=== PATIENT | male | born 1940 | race Caucasian/White ===

== ENCOUNTER 2018-02-05 11:17 | Inpatient (IN) ==
--- NOTE | 2018-02-05 11:40 | CT ---
EXAM DATE: 02/05/2018 11:31 AM EST AGE/SEX: 77 years / Male INDICATIONS: Left side facial droop CLINICAL DATA: This is the patient's initial encounter. Patient reports that signs and symptoms have been present for 1 day and indicates a pain score of 0/10. MEDICAL/SURGICAL HISTORY: None. None. RADIATION DOSE: 33.61 CTDI (mGy) COMPARISON: [facility] [place] BRAIN [place]/O CONTRAST, 12/07/2011. . TECHNIQUE: CT of the head without contrast. Using automated exposure control and adjustment of the mA and/or kV according to patient size, radiation dose was kept as low as reasonably achievable to ob tain optimal diagnostic quality images. DICOM format image data is available electronically for revi ew and comparison. FINDINGS: Cerebrum: Encephalomalacia in the left frontal parietal region characteristic of an old infarct is a gain noted. There are no characteristic findings of acute infarct or hemorrhage. There is no evidence of mass eff ect or edema. Posterior Fossa: The cerebellum and brainstem are intact. The 4th ventricle is midline. The cerebe llopontine angle is unremarkable. Extracranial: The visualized portion of the orbits is intact. Skull: The calvaria is intact. No evidence of skull fracture. CONCLUSION: 1. No evidence of acute infarct or hemorrhage. 2. Left frontal parietal encephalomalacia consistent with old infarct. Report was called by [Dr. Richardson ]to E pod nursing staff. Electronically signed by: Marko Richardson MD 02/05/2018 11:39 AM EST
[2018-02-05 11:42] LABS: Baso # (Auto) 0.1 th/mm3 (0.0-0.2); Baso % (Auto) 0.9 % (0.0-2.0); Eos # (Auto) 0.2 th/mm3 (0.0-0.4); Eos % (Auto) 2.9 % (0.0-4.0); Hematocrit 42.2 % (39.0-51.0); Hemoglobin 14.4 gm/dL (13.0-17.0); Lymph # (Auto) 1.8 th/mm3 (1.0-4.8); Lymph % (Auto) 23.5 % (9.0-44.0); Mean Corpuscular HGB Conc 34.1 % (32.0-36.0); Mean Corpuscular Hemoglobin 31.4 pg (27.0-34.0); Mean Platelet Volume 9.3 fL (7.0-11.0); Mono # (Auto) 0.8 th/mm3 (0.0-0.9); Neut # (Auto) 4.9 th/mm3 (1.8-7.7); Neut % (Auto) 62.7 % (16.0-70.0); Platelet Count 181 th/mm3 (150-450); Red Blood Count 4.58 mil/mm3 (4.50-5.90); White Blood Count 7.8 th/mm3 (4.0-11.0)
[2018-02-05] MEDS ORDERED: Alteplase Bolus 9 MG/9 ML Syringe IV.PUSH ONE (11:43)
[2018-02-05] MEDS ORDERED: ALTEPLASE DRIP IV.SIG ONE (11:43)
[2018-02-05] MEDS: niCARdipine Inj 25 MG in Sodium Chlor 0.9% Inj 240 ML IV.CONT PRN (11:44)
[2018-02-05 11:50] LABS: Prothrombin Time 10.3 sec (9.8-11.6)
--- NOTE | 2018-02-05 11:53 | XR ---
EXAM DATE: 02/05/2018 11:49 AM EST AGE/SEX: 77 years / Male INDICATIONS: Stroke alert. CLINICAL DATA: This is the patient's initial encounter. Patient reports that signs and symptoms have been present for 1 day and indicates a pain score of Nonresponsive. MEDICAL/SURGICAL HISTORY: None. None. COMPARISON: [facility] – [place], CHEST SINGLE AP, 01/10/2015. . FINDINGS: A single AP view of the chest demonstrates the lungs to be symmetrically aerated without evidence of mass, infiltrate or effusion. The cardiomediastinal contours are unremarkable. Osseous structures a re intact. CONCLUSION: No evidence of acute cardiopulmonary process. Electronically signed by: Marko Richardson MD 02/05/2018 11:52 AM EST
--- NOTE | 2018-02-05 12:03 | CT ---
EXAM DATE: 02/05/2018 11:57 AM EST AGE/SEX: 77 years / Male INDICATIONS: Left side facial droop CLINICAL DATA: This is the patient's initial encounter. Patient reports that signs and symptoms have been present for 1 day and indicates a pain score of 0/10. MEDICAL/SURGICAL HISTORY: None. None. RADIATION DOSE: 27.35 CTDI (mGy) COMPARISON: [facility] – [place], CT HEAD W/O CONTRAST, 02/05/2018. . TECHNIQUE: Volumetric scanning was performed using a multi-row detector CT scanner during bolus infu olivia of 85ML ml Visipaque 320 (iodixanol) nonionic water-soluble contrast as a single exam dose. T he data was post processed with a variety of visualization algorithms including full volume maximum i ntensity projection, multi-planar sliding thin slab reformation, curved planar reformation, and surfa ce rendering techniques. Using automated exposure control and adjustment of the mA and/or kV accordi ng to patient size, radiation dose was kept as low as reasonably achievable to obtain optimal diagnos tic quality images. DICOM format image data is available electronically for review and comparison. FINDINGS: There is excellent visualization of the major intracranial arteries out to the second-order branch ve ssels. There is no evidence for aneurysm, vessel truncation or stenosis, and no evidence for vascula r malformation. CONCLUSION: No evidence of intraluminal filling defects or steno-occlusive disease. . Electronically signed by: Marko Richardson MD 02/05/2018 12:01 PM EST
--- NOTE | 2018-02-05 12:08 | CT ---
EXAM DATE: 02/05/2018 11:58 AM EST AGE/SEX: 77 years / Male INDICATIONS: Left side facial droop CLINICAL DATA: This is the patient's initial encounter. Patient reports that signs and symptoms have been present for 1 day and indicates a pain score of 0/10. MEDICAL/SURGICAL HISTORY: None. None. RADIATION DOSE: 27.35 CTDI (mGy) COMPARISON: No prior exams available for comparison. TECHNIQUE: Volumetric scanning was performed using a multirow detector CT scanner during bolus infus ion of 85ml ml Visipaque 320 (iodixanol) nonionic water-soluble contrast as a single exam dose. Th e data was postprocessed with a variety of visualization algorithms including full-volume maximum int ensity projection, multiplanar sliding thin-slab reformation, curved-planar reformation, and surface- rendering techniques. Using automated exposure control and adjustment of the mA and/or kV according to patient size, radiation dose was kept as low as reasonably achievable to obtain optimal diagnostic quality images. DICOM format image data is available electronically for review and comparison. FINDINGS: Aortic Arch: There is a three-vessel origin of the great vessels from the aorta. No evidence of ost ial narrowing Right Carotid: Mild eccentric ossified plaque is evident in the carotid bifurcation. There is no sig nificant stenosis. Left Carotid: Heavily calcified eccentric plaque is identified in the left carotid bifurcation exten ding into the proximal internal carotid artery. There is high-grade stenosis greater than 80%. Vertebrals: The vertebral arteries have a symmetric diameter. No stenotic lesions are seen. Percent stenosis is calculated using the diameter of the stenotic region over the diameter of the nor mal distal internal carotid artery. CONCLUSION: 1. Calcified plaque left carotid bifurcation with high-grade stenosis in the origin of the internal carotid artery (greater than 80%). 2. Mild eccentric plaque right carotid bifurcation without significant stenosis. 3. Patent symmetric vertebral arteries. Electronically signed by: Marko Richardson MD 02/05/2018 12:07 PM EST
--- NOTE | 2018-02-05 12:14 | ED ---
HPI General Chief Complaint: Stroke Alert Stated Complaint: Stroke Alert Time Seen by Provider: 02/05/18 11:19 Source: patient, family and EMS Mode of arrival: EMS Limitations: language barrier History of Present Illness HPI Narrative: 77 yo male arrives with expressive aphasia for about one hour. Symptoms started suddenly while patient was talking with daughter who subsequently called 911. 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 Timing constant. EMS reports BP approx 220/100 en route with sinus rhythm. + ASA no DOAC medication. Related Data Allergies Allergy/AdvReac Type Severity Reaction Status Date / Time hornet venom Allergy Severe unknown Verified 02/05/18 11:44 atorvastatin Allergy Unknown unknown Verified 02/05/18 11:44 Review of Systems ROS: all other systems reviewed are negative [facility] Medical History Medical History CVA (cerebral vascular accident) (Acute) HTN (hypertension) (Acute) Hypercholesterolemia (Acute) Social History Social History Substance History: No History of Abuse Smoking Status: Never smoker How Often Do You Have a Drink Containing Alcohol: Never Recent Travel in [facility] within the Last 8 Weeks: No Recent Out of Country Travel within the Last 8 Weeks: No Immunization History Tetanus Immunization: <5 Years Exam Narrative Exam Narrative: GENERAL: 77 yo M, WNWD, pleasant mild distress SKIN: Focused skin assessment warm/dry. HEAD: Atraumatic. Normocephalic. EYES: Pupils equal and round. No scleral icterus. No injection or drainage. ENT: No nasal bleeding or discharge. Mucous membranes pink and moist. NECK: Trachea midline. No JVD. CARDIOVASCULAR: Regular rate and rhythm. No murmur appreciated. RESPIRATORY: No accessory muscle use. Clear to auscultation. Breath sounds equal bilaterally. GASTROINTESTINAL: Abdomen soft, non-tender, nondistended. Hepatic and splenic margins not palpable. MUSCULOSKELETAL: No obvious deformities. No clubbing. No cyanosis. No edema. NEUROLOGICAL: Awake and alert. Expressive aphasia. 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 LE motor function normal bilaterally. PSYCHIATRIC: Appropriate mood and affect; insight and judgment normal. Course Initial Documented Vital Signs Temperature 98.0 F 02/05/18 11:38 Pulse Rate 64 02/05/18 11:38 Respiratory Rate 21 02/05/18 11:38 Blood Pressure 221/100 H 02/05/18 11:38 Pulse Oximetry 97 02/05/18 11:38 Last Documented Vital Signs Temperature 98.0 F 02/05/18 11:38 Pulse Rate 64 02/05/18 11:38 Respiratory Rate 21 02/05/18 11:38 Blood Pressure 221/100 H 02/05/18 11:38 Pulse Oximetry 97 02/05/18 11:38 Critical Care Time Critical Care Time: Yes Total Critical Care Time: 45 Attestation: Aggregate critical care time was 45 minutes. Time to perform other separately billable procedures was not included in the critical care time. My time did not include minutes spent treating any other patients simultaneously or on activities that did not directly contribute to the patient's treatment. The services I provided to this patient were to treat and/or prevent clinically significant deterioration that could result in: Permanent disability I provided critical care services requiring my management, as noted below: Chart data review, documentation time, medication orders and management, vital sign assessments/reviewing monitor data, ordering and reviewing lab tests, ordering and interpreting/reviewing x-rays and diagnostic studies, care of the patient and discussion of the patient with the admitting physicians. Medical Decision Making MDM Narrative Medical decision making narrative: TPA given in ED after BP control with Cardene gtt. d/w patient and daughter at bedside regarding risks vs benefits for TPA administration. daughter, POA, and patient verbalized understanding and requested we proceed with TPA. d/w Dr Maret, please review his note. d/w Dr Loja for [facility] service. High grade carotid stenosis noted. Medical Screen Exam Complete: Yes Emergency Medical Condition: Yes Lab Data Lab results reviewed: Yes I reviewed the patient's lab results. Result diagrams: 02/05/18 11:20 Lab Results 02/05/18 02/05/18 02/05/18 Range/Units 11:20 11:20 11:20 WBC 7.8 (4.0-11.0) th/mm3 RBC 4.58 (4.50-5.90) mil/mm3 Hgb 14.4 (13.0-17.0) gm/dL POC Hgb (Calc) (13.0-17.0) g/dL Hct 42.2 (39.0-51.0) % POC Hct (39-51.0) % MCV 92.0 (80.0-100.0) fL MCH 31.4 (27.0-34.0) pg MCHC 34.1 (32.0-36.0) % RDW 14.0 (11.6-17.2) % Plt Count 181 (150-450) th/mm3 MPV 9.3 (7.0-11.0) fL Neut % (Auto) 62.7 (16.0-70.0) % Lymph % (Auto) 23.5 (9.0-44.0) % Dickenson % (Auto) 10.0 H (0.0-8.0) % Eos % (Auto) 2.9 (0.0-4.0) % Baso % (Auto) 0.9 (0.0-2.0) % Neut # (Auto) 4.9 (1.8-7.7) th/mm3 Lymph # (Auto) 1.8 (1.0-4.8) th/mm3 Dickenson # (Auto) 0.8 (0.0-0.9) th/mm3 Eos # (Auto) 0.2 (0.0-0.4) th/mm3 Baso # (Auto) 0.1 (0.0-0.2) th/mm3 WBC Differential . Differential Comment Auto diff final PT 10.3 (9.8-11.6) sec INR 1.0 Ratio APTT 25.0 (23.4-31.7) sec Fibrinogen 323 (227-377) mg/dL POC Sodium (137-144) mmol/L POC Potassium (3.6-5.0) mmol/L POC Chloride (102-111) mmol/L POC BUN (5-21) mg/dL POC Creatinine (0.6-1.3) mg/dL POC Glucose (68-110) mg/dL Blood Type O Positive Antibody Screen Negative 02/05/18 Range/Units 11:20 WBC (4.0-11.0) th/mm3 RBC (4.50-5.90) mil/mm3 Hgb (13.0-17.0) gm/dL POC Hgb (Calc) 14.3 (13.0-17.0) g/dL Hct (39.0-51.0) % POC Hct 42.0 (39-51.0) % MCV (80.0-100.0) fL MCH (27.0-34.0) pg MCHC (32.0-36.0) % RDW (11.6-17.2) % Plt Count (150-450) th/mm3 MPV (7.0-11.0) fL Neut % (Auto) (16.0-70.0) % Lymph % (Auto) (9.0-44.0) % Dickenson % (Auto) (0.0-8.0) % Eos % (Auto) (0.0-4.0) % Baso % (Auto) (0.0-2.0) % Neut # (Auto) (1.8-7.7) th/mm3 Lymph # (Auto) (1.0-4.8) th/mm3 Dickenson # (Auto) (0.0-0.9) th/mm3 Eos # (Auto) (0.0-0.4) th/mm3 Baso # (Auto) (0.0-0.2) th/mm3 WBC Differential Differential Comment PT (9.8-11.6) sec INR Ratio APTT (23.4-31.7) sec Fibrinogen (227-377) mg/dL POC Sodium 142 (137-144) mmol/L POC Potassium 3.8 (3.6-5.0) mmol/L POC Chloride 102 (102-111) mmol/L POC BUN 13 (5-21) mg/dL POC Creatinine 0.9 (0.6-1.3) mg/dL POC Glucose 102 (68-110) mg/dL Blood Type Antibody Screen Imaging Data Attestation: I personally reviewed and interpreted this imaging study as follows : Radiologist's impression: Chest X-Ray 02/05/18 11:19 CONCLUSION: No evidence of acute cardiopulmonary process. Head CT 02/05/18 11:19 CONCLUSION: 1. No evidence of acute infarct or hemorrhage. 2. Left frontal parietal encephalomalacia consistent with old infarct. Report was called by [Dr. Richardson ]to E pod nursing staff. Head CTA 02/05/18 11:19 CONCLUSION: No evidence of intraluminal filling defects or steno-occlusive disease. . Neck CTA 02/05/18 11:19 CONCLUSION: 1. Calcified plaque left carotid bifurcation with high-grade stenosis in the origin of the internal carotid artery (greater than 80%). 2. Mild eccentric plaque right carotid bifurcation without significant stenosis. 3. Patent symmetric vertebral arteries. Discharge Plan Discharge Disposition Patient Disposition: ED Admit(ED Internal Use Only) Discharge Order Discharge Orders: ED Use Only Admit Order (Routine); Ordered 02/05/18 Ordered By: José Luis Sales Physicians Team ED Provider: José Luis Sales Primary Care Provider: UNKNOWN, Attending Provider: Shankar Loja Status ED Status: Admitted Patient
--- NOTE | 2018-02-05 12:30 | MB ---
cc: Merrill Marte MD, PhD DATE: 02/05/2018 REASON FOR CONSULTATION: Stroke alert. HISTORY OF PRESENT ILLNESS: Mr. Aquino is a 77-year-old man who has a history of stroke in the past, who about an hour before arrival, which was 10 a.m., developed acute onset of difficulty getting words out. He was able to talk in his [place] tongue of Mongolian but could not express anything in Hungarian. He had a left facial droop as well. No focal weakness. A stroke alert was called. PAST MEDICAL HISTORY: He has a history of hypertension. 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 History of prior stroke with expressive aphasia, which completely cleared up. History of right hip fracture. PREVIOUS MEDICATION: He takes aspirin. He is not on any anticoagulants. He takes medicine for his blood pressure. NEUROLOGIC EXAMINATION: VITAL SIGNS: He was initially hypertensive when he presented to 221/100. He is on Cardene now with blood pressure of 180/80. Pulse 64 and regular. He is in sinus rhythm. Temperature 98 degrees. HIGHER CORTICAL FUNCTION: He is alert. His speech is dysarthric. He is able to get words out, but they are definitely dysarthric. He can follow commands. Cranial nerves: There is a left facial droop. MOTOR: Motor exam is 5/5 in all groups in both upper and lower extremities. There is no drift. Fine motor skills normal. Reflexes are symmetric. IMAGING STUDIES: CT of the brain, no acute change. There is left frontoparietal encephalomalacia consistent with an old stroke. CTA of the brain and neck currently pending. LABORATORY DATA: White count is 7800, hemoglobin 14.4, hematocrit 42%, platelet count 181,000. The PT is 10.3, INR 1, aPTT 25. Sodium is 142, potassium 3.8, chloride 102, BUN is 13, creatinine 0.9, glucose 102. EKG: Sinus rhythm. IMPRESSION: Acute stroke with initially aphasia, left facial droop. The patient does meet criteria for IV tPA. Therefore, this was discussed with his family, including risks and benefits, including a 6% risk of hemorrhage, and it was elected to proceed with IV tPA. We will also followup with the CT angiogram results. We will avoid any antiplatelets or anticoagulants for 24 hours. Will obtain a 24-hour post-tPA CT of the brain. Also obtain an MRI of the brain, echocardiogram for further evaluation, as well as a lipid panel. ADDENDUM: Since my original dictation, CT angiogram has been reviewed. The CTA of the neck shows calcified plaque at the left carotid bifurcation with high-grade stenosis approximately 80%. There is mild plaque on the right with no significant stenosis. Vertebral arteries are patent. CTA of the head was also reviewed with no evidence of any large vessel occlusion or stenosis. The patient is demonstrating considerable improvement in his speech since initiation of TPA. I reevaluated his cranial nerve examination. There is no clear facial droop on the left. The upper extremities are normal in strength. We will review of further examination with the MRI of the brain. Since this was an expressive aphasia. It is possible that this may have been a left hemispheric event which would implicate the left carotid stenosis potentially in this stroke. His CT of the brain does reveal evidence of an old stroke in the left hemisphere. For this reason, we will also ask for a vascular surgery consultation regarding the left carotid stenosis. Merrill Marte MD, PhD SHIRLEY/lester , 12:08 PM , 12:16 PM
[2018-02-05 12:55] LABS: Creatine Kinase 51 U/L (39-308)
[2018-02-05] MEDS ORDERED: Gadobutrol PF 7.5 MMOL/7.5 ML Vial (for RAD) IV.SIG ONE (13:25)
[2018-02-05 13:44] LABS: Bilirubin,Urine Negative (Negative); Clarity,Urine Clear (Clear); Glucose,Urine (UA) Negative (Negative); Leukocyte Esterase,Urine Negative (Negative); Mucus,Urine Few /lpf (Occasional); Nitrite,Urine Negative (Negative); Specific Gravity,Urine 1.021 (1.002-1.035); Squamous Epithelial Cell,Urine <1 /hpf (0-5)
[2018-02-05 13:45] LABS: Amphetamine Screen,Urine Neg (Neg); Barbiturate Screen,Urine Neg (Neg); Cannabinoid Screen,Urine Neg (Neg); Cocaine Screen,Urine Neg (Neg); Color,Urine Straw (Yellw/Straw)
[2018-02-05] MEDS ORDERED: Sod Chloride 0.9% Inj 1,000 ML IV.CONT SCH (13:45)
[2018-02-05 13:49] LABS: Opiate Screen,Urine Neg (Neg)
--- NOTE | 2018-02-05 13:59 | MB ---
cc: Merrill Marte MD, PhD DATE: 02/05/2018 ADDENDUM: Since my original dictation, CT angiogram has been reviewed. The CTA of the neck shows calcified plaque at the left carotid bifurcation with high-grade stenosis approximately 80%. There is mild plaque on the right with no significant stenosis. Vertebral arteries are patent. CTA of the head was also reviewed with no evidence of any large vessel occlusion or stenosis. The patient is demonstrating considerable improvement in his speech since initiation of tPA. I reevaluated his cranial nerve examination. There is no clear facial droop on the left. The upper extremities are normal in strength. We will review of further examination with the MRI of the brain. Since this was an expressive aphasia. It is possible that this may have been a left hemispheric event which would implicate the left carotid stenosis potentially in this stroke. His CT of the brain does reveal evidence of an old stroke in the left hemisphere. For this reason, we will also ask for a vascular surgery consultation regarding the left carotid stenosis. Merrill Marte MD, PhD SHIRLEY/lester , 01:20 PM , 01:25 PM
[2018-02-05 14:00] LABS: Chol/HDL Ratio 2.16 Ratio
--- NOTE | 2018-02-05 14:06 | MR ---
EXAM DATE: 02/05/2018 1:39 PM EST AGE/SEX: 77 years / Male INDICATIONS: Stroke alert. Post TPA. CLINICAL DATA: This is the patient's initial encounter. Patient reports that signs and symptoms have been present for 1 day and indicates a pain score of 0/10. MEDICAL/SURGICAL HISTORY: Cerebrovascular disease. Hypertension. Cholecystectomy. Right hip re placement. COMPARISON: [facility] – [place], [place] HEAD W/O CONTRAST, 02/05/2018. . TECHNIQUE: Multiplanar, multisequence examination of the brain was performed without and with 7cc ml Gadavist (gadobutrol) contrast as a single exam dose. FINDINGS: Cerebrum: There is focal encephalomalacia in the left frontoparietal region. There is a linear area of acute infarction seen in this region. The lateral ventricles are mildly distended. There is wideni ng of the cortical sulci. No evidence of midline shift, mass lesion, hemorrhage. No extraaxial flu id collections are seen. The pituitary gland and suprasellar cistern are normal in configuration. White Matter: There is increased signal seen throughout the cerebral white matter being worse on the left especially around the encephalomalacia. Posterior Fossa: The cerebellum and brainstem are intact. The 4th ventricle is midline. The cerebel lopontine angle is unremarkable. The cerebellar tonsils are normal in position. Diffusion Imaging: Again noted is the linear increased signal in the cortical gyrus seen in the left frontoparietal region. Extracranial: The visualized portions of the orbits and paranasal sinuses are unremarkable. Post Contrast: No abnormal areas of parenchymal or dural enhancement. No evidence of blood-brain ba rrier breakdown. CONCLUSION: 1. Linear area of acute infarction at a cortical gyrus of the left frontoparietal region. 2. Adjacent encephalomalacia in the left frontoparietal region. 3. Suspected small vessel ischemic change in the white matter. 4. Age-related atrophy. Electronically signed by: Freedom Quiroga MD 02/05/2018 2:04 PM EST
[2018-02-05] MEDS ORDERED: Labetalol HCl Inj 100 MG/20 ML Vial IV.PUSH PRN (15:47)
[2018-02-05] MEDS ORDERED: Dextrose 50% in Water 50 ML Vial IV.PUSH PRN (15:47)
[2018-02-05] MEDS ORDERED: Acetaminophen Inj 650 MG/65 ML VIAL IV.SIG PRN (15:57)
--- NOTE | 2018-02-05 16:08 | P.HPCC ---
History of Present Illness Service: Critical care medicine Primary Care Physician: UNKNOWN Chief Complaint: Right facial droop/dysarthria History of Present Illness: This is a 77-year-old male. Date of admission 02/05/2018. 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 Patient presents to [facility] with acute onset of dysarthria, right facial droop at 10 AM this morning. Stroke alert was called when patient arrived. CT of the brain revealed old left frontoparietal encephalomalacia. CT Kathrin of the brain revealed no acute findings. CT angiogram of the neck revealed 80% stenosis left internal carotid at the bulb. MRI of the brain revealed acute left frontal parietal CVA at the gyrus. Patient was able to speak Persian but very little Nauruan during this event. There is no significant noncranial nerve motor or sensory deficit. Patient was advised by Dr. Marte. Patient received 6.4 mg of alteplase followed by 57 mg. At first patient had improving left facial droop and dysarthria. Vascular surgeon been consulted for the left internal carotid stenosis. - Diagnosis (1) CVA (cerebral vascular accident) (2) Hypertension (3) Hyperlipidemia (4) Elevated HDL (5) Left carotid stenosis Inpatient Certification: I certify that the inpatient services were ordered in accordance with Medicare regulations governing the order. This includes certification that hospital inpatient services are reasonable and necessary and in the case of services not specified as inpatient-only under 42 CFR 419.22(n), that they are appropriately provided as inpatient services in accordance to with the 2-midnight benchmark under 43 CFR 412.3(e) Estimated Total Length of Stay (Days): 5 Plans for Post Hospital Care: Home Review of Systems Constitutional: Denies anorexia, Denies body ache(s), Denies chills Eyes: Denies blind spots, Denies blurry vision Ears, Nose, Mouth, and Throat: Denies abnormal hearing, Denies bad breath, Denies poor balance Cardiovascular: Denies chest pain, Denies chest pain at rest, Denies shortness of breath, Denies shortness of breath with activity Respiratory: Denies chest congestion, Denies cough Gastrointestinal: Denies abdominal pain, Denies nausea, Denies vomiting Genitourinary: Denies urinary hesitancy, Denies urinary incontinence Musculoskeletal: Denies abnormal walking, Denies back pain, Denies body aches, Denies stiffness Skin/Breast: Denies bleeding lesions, Denies wounds Neurologic: Reports abnormal speech, Reports confusion, Reports other (Left facial droop and dysarthria), Denies abnormal hearing, Denies abnormal movements , Denies abnormal walking, Denies frequent falls, Denies headache(s), Denies lack of coordination, Denies localized weakness, Denies sensory deficit, Denies tremor(s), Denies unsteadiness, Denies weakness Psychiatric: Reports confusion, Denies anxiety, Denies depression Endocrine: Denies cold intolerance, Denies excessive sweating Hematologic/Lymphatic: Denies easy bleeding PMFSH - History History 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, 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 - Medical History Medical History: Medical History (Last Updated 02/05/18 @ 11:41 by Claudia Argueta RN) CVA (cerebral vascular accident) HTN (hypertension) Hypercholesterolemia - Surgical History Surgical History: Surgical History (Last Updated 02/05/18 @ 12:36 by Claudia Argueta RN) History of cholecystectomy History of hip replacement Hx of appendectomy - Family History Family History: Family History (Last Updated 02/05/18 @ 16:04 by Larry Ross MD) Other History of myocardial infarction Maternal family history of dementia - Social History I have reviewed the patient's Social History: Yes - Tobacco History Second Hand Smoke Exposure: No Tobacco Use In Past 30 Days: No Smoking Status: Never smoker - Alcohol History How Often Do You Have a Drink Containing Alcohol: Never - Substance Use History Substance History: No History of Abuse - Travel History Recent Travel in the [place] Within the Last 8 Weeks: No Recent Travel Out of the Country Within the Last 8 Weeks: No - Immunization History Tetanus Immunization: <5 Years Medications and Allergies Active Medications: Active Medications Albuterol (Albuterol Neb (Prn)) 2.5 mg NEB Q2HR NEB PRN PRN Reason: DYSPNEA Albuterol (Duoneb Neb (Prn)) 1 ampul NEB Q4HR NEB ANJEL Chlorhexidine Gluconate (Chlorhexidine 2% Cloth) 3 pack TOPICAL DAILY@0400 ANJEL Stop: 02/11/18 03:59 Chlorhexidine Gluconate (Chlorhexidine 2% Cloth) 3 pack TOPICAL DAILY@0400 PRN PRN Reason: Extra cloth needed Stop: 02/11/18 03:59 Dextrose (D50w Vial) 50 ml IV.PUSH UNSCH PRN PRN Reason: PER HYPOGLYCEMIA PROTOCOL Famotidine (Pepcid Pf Inj) 20 mg IV.PUSH Q12HR ANJEL Glucagon (Glucagon Inj) 1 mg OTHER UNSCH PRN PRN Reason: for Hypoglycemia Protocol Nicardipine HCl 25 mg/ Sodium (Chloride) 250 mls @ 50 mls/hr IV.CONT TITRATE PRN; Protocol PRN Reason: Per Protocol Last Titration: 02/05/18 13:56 Dose: 2.5 mg/hr, 25 mls/hr Sodium Chloride (Ns Inj) 1,000 mls @ 84 mls/hr IV.CONT .[id number] ANJEL Last Admin: 02/05/18 13:57 Dose: 84 mls/hr Acetaminophen (Ofirmev Inj) 650 mg in 65 mls @ 400 mls/hr IV.SIG Q6H PRN PRN Reason: PAIN SCALE 1 TO 10 Insulin Aspart (Novolog Insulin Correctional Sugar Inj) 0 unit SQ Q6HR ANJEL; Protocol Labetalol HCl (Trandate Inj) 10 mg IV.PUSH Q2H PRN PRN Reason: For SBP > 180 or DBP > 105 Lactulose (Lactulose Liq) 30 ml PO DAILY PRN PRN Reason: SEVERE CONSITIPATION Allergies Allergy/AdvReac Type Severity Reaction Status Date / Time hornet venom Allergy Severe unknown Verified 02/05/18 11:44 atorvastatin Allergy Unknown unknown Verified 02/05/18 11:44 Home Medications Medication Instructions Recorded Confirmed Type Unable to Obtain Home Meds 02/05/18 02/05/18 History Results - Labs CBC & Chem 7: 02/05/18 11:20 Labs: Short CBC 02/05/18 Range/Units 11:20 WBC 7.8 (4.0-11.0) th/mm3 Hgb 14.4 (13.0-17.0) gm/dL Hct 42.2 (39.0-51.0) % Plt Count 181 (150-450) th/mm3 Cardiac Enzymes 02/05/18 Range/Units 11:20 Total Creatine Kinase 51 (39-308) U/L Troponin I Less than 0.02 L (0.02-0.05) ng/mL Urine 02/05/18 Range/Units 12:26 Urine Color Straw (Yellw/Straw) Urine Clarity Clear (Clear) Urine pH 7.0 (5.0-8.5) Ur Specific [place] 1.021 (1.002-1.035) Urine Protein Negative (Neg-Trace) mg/dL Urine Glucose (UA) Negative (Negative) mg/dL - Imaging Impressions Head MRI 02/05/18 00:00 CONCLUSION: 1. Linear area of acute infarction at a cortical gyrus of the left frontoparietal region. 2. Adjacent encephalomalacia in the left frontoparietal region. 3. Suspected small vessel ischemic change in the white matter. 4. Age-related atrophy. Chest X-Ray 02/05/18 11:19 CONCLUSION: No evidence of acute cardiopulmonary process. Head CT 02/05/18 11:19 CONCLUSION: 1. No evidence of acute infarct or hemorrhage. 2. Left frontal parietal encephalomalacia consistent with old infarct. Report was called by [Dr. Richardson ]to E pod nursing staff. Head CTA 02/05/18 11:19 CONCLUSION: No evidence of intraluminal filling defects or steno-occlusive disease. . Neck CTA 02/05/18 11:19 CONCLUSION: 1. Calcified plaque left carotid bifurcation with high-grade stenosis in the origin of the internal carotid artery (greater than 80%). 2. Mild eccentric plaque right carotid bifurcation without significant stenosis. 3. Patent symmetric vertebral arteries. Exam Vital signs: Vital Signs 02/05/18 11:38 Temperature 98.0 F Pulse Rate 64 Respiratory Rate 21 Blood Pressure 221/100 H Pulse Oximetry 97 Intake & Output 02/04/18 02/05/18 02/05/18 18:59 06:59 18:59 Intake Total 57 / 57 Balance 57 / 57 Weight 70.6 kg Intake: IV 57 / 57 Activase Drip 57 MG In Bag/ 57 / 57 Syringe 1 EACH @ 57 mls/hr IV. SIG ONCE ONE Rx#:[id number] - Constitutional no acute distress - Routine HEENT Exam Head: Present: normocephalic, atraumatic Eye: Present: EOMI, PERRL. Absent: exophthalmos, proptosis ENT: Present: mucous membranes moist - Routine Neck Exam Present: supple, full ROM. Absent: JVD, carotid bruit - Routine Chest/Breast/Axilla Exam Chest wall: Absent: tenderness Breast: Absent: tenderness Axillae: Absent: lymphadenopathy - Routine Respiratory Exam Present: CTA bilaterally. Absent: accessory muscle use - Routine Cardiovascular Exam Present: RRR, S1, S2. Absent: murmur - Routine Abdominal Exam Present: soft, normoactive bowel sounds - Routine Extremities Exam Absent: cyanosis, clubbing, edema, calf tenderness - Routine Skin Exam Present: intact - Routine Neurological Exam Present: alert, oriented X3. Absent: CN II-XII intact (Right facial droop), normal speech (Dysarthria) Septic Shock Reassessment Septic shock perfusion: reassessment completed Caprini VTE Risk Assessment Caprini VTE Risk Assessment: No/Low Risk (score <= 1) Caprini Risk Assessment Model: Point Value = 1 Point Value = 2 Point Value = 3 Point Value = 5 Age 41-60 Minor surgery BMI > 25 kg/m2 Swollen legs Varicose veins or History of unexplained or recurrent spontaneous Oral contraceptives or hormone replacement Sepsis (< 1 month) Serious lung disease, including pneumonia (< 1 month) Abnormal pulmonary function Acute myocardial infarction Congestive heart failure (< 1 month) History of inflammatory bowel disease Medical patient at bed rest Age 61-74 Arthroscopic surgery Major open surgery (> 45 min) Laparoscopic surgery (> 45 min) Malignancy Confined to bed (> 72 hours) Immobilizing plaster cast Central venous access Age >= 75 History of VTE Family history of VTE Factor V Leiden Prothrombin [id number] Lupus anticoagulant Anticardiolipin antibodies Elevated serum homocysteine Heparin-induced thrombocytopenia Other congenital or acquired thrombophilia Stroke (< 1 month) Elective arthroplasty Hip, pelvis, or leg fracture Acute spinal cord injury (< 1 month) Prophylaxis Regimen: Total Risk Factor Score Risk Level Prophylaxis Regimen 0-1 Low Early ambulation 2 Moderate Order ONE of the following: *Sequential Compression Device (SCD) *Heparin 5000 units SQ BID 3-4 Higher Order ONE of the following medications: *Heparin 5000 units SQ TID *Enoxaparin/Lovenox 40 mg SQ daily (WT < 150 kg, CrCl > 30 mL/min) *Enoxaparin/Lovenox 30 mg SQ daily (WT < 150 kg, CrCl > 10-29 mL/min) *Enoxaparin/Lovenox 30 mg SQ BID (WT < 150 kg, CrCl > 30 mL/min) AND/OR *Sequential Compression Device (SCD) 5 or more Highest Order ONE of the following medications: *Heparin 5000 units SQ TID (Preferred with Epidurals) *Enoxaparin/Lovenox 40 mg SQ daily (WT < 150 kg, CrCl > 30 mL/min) *Enoxaparin/Lovenox 30 mg SQ daily (WT < 150 kg, CrCl > 10-29 mL/min) *Enoxaparin/Lovenox 30 mg SQ BID (WT < 150 kg, CrCl > 30 mL/min) AND *Sequential Compression Device (SCD) Assessment and Plan - Problem List (1) CVA (cerebral vascular accident) Code(s): I63.9 - Cerebral infarction, unspecified Status: Acute (2) Hypertension Code(s): I10 - Essential (primary) hypertension Status: Chronic (3) Hyperlipidemia Code(s): E78.5 - Hyperlipidemia, unspecified Status: Chronic (4) Elevated HDL Code(s): E78.89 - Other lipoprotein metabolism disorders Status: Acute (5) Left carotid stenosis Code(s): I65.22 - Occlusion and stenosis of left carotid artery Status: Acute - Assessment and Plan Plan: Neuro/Psych: Acute left frontal parietal CVA with dysarthria and right-sided facial droop history of CVA with expressive aphasia 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 CT angiogram of the neck revealed left carotid stenosis 80% -vascular surgery consulted by neurology CT angiogram of brain revealed no acute findings MRI brain revealed acute CVA at the cortical gyri of the left frontoparietal region Received alteplase 6.4 mg x1 followed by 57 mg over 1 hour Neurology/Dr. Marte following Repeat brain CT 24 hours post infusion We will keep systolic blood pressure less than 180, diastolic pressure is 105 with labetalol and nicardipine drip 2D echocardiogram ordered. PT/OT/ST evaluate and treat Head of bed flat times 12 hours NIH score Neurocheck CV: Essential hypertension Hyperlipidemia -with elevated HDL Left carotid stenosis Currently on as needed labetalol and nicardipine drip to keep systolic blood pressure 70, diastolic blood pressure 75 Follow-up on 2D echocardiogram Continue home medications HDL is elevated. LDL is within normal limits. Vascular surgery is consulted for the left carotid stenosis Resp: Nasal cannula to maintain saturations greater than equal to 92% Incentive spirometry while awake Albuterol/ipratropium aerosols every 4 hours with albuterol aerosols every 2 hours as needed dyspnea GI: N.p.o. status Famotidine for GI prophylaxis : Condom catheter if needed Endo: Check hemoglobin A1c and TSH Sliding scale insulin Accu-Cheks to maintain euglycemia Renal: Creatinine currently within normal limits Monitor urine output Accurate I's and O's Heme: CBC currently within normal limits No indication for transfusion of blood products at this time ID: Monitor for signs and symptomatology infection FEN: Currently normal saline at 70 cc an hour Replace electro lites as clinically indicated MSK: PT/OT evaluate and treat Access -Utilize peripheral IV. Central line if indicated Prophylaxis -GI -famotidine -DVT -SCD/pharmacological prophylaxis contraindicated 24 hours post alteplase Level 3 admission Patient stable from critical care medicine standpoint. Assign care to hospitalist in a.m. 02/06. (1) CVA (cerebral vascular accident) Qualifiers: CVA mechanism: unspecified Qualified Code(s): I63.9 - Cerebral infarction, unspecified (2) Hypertension Qualifiers: Hypertension type: unspecified Qualified Code(s): I10 - Essential (primary) hypertension (3) Hyperlipidemia Qualifiers: Hyperlipidemia type: unspecified Qualified Code(s): E78.5 - Hyperlipidemia, unspecified
[2018-02-05] MEDS: Sod Chloride 0.9% Inj 1,000 ML IV.CONT SCH (16:15)
[2018-02-05] MEDS ORDERED: Potassium Chlor 40 mEq Premix 40 MEQ/100 ML PIGGYBACK IV.SIG PRN ×2 (16:16)
[2018-02-05] MEDS ORDERED: Potassium Phosphate 500 MG Soluble Tablet PO PRN ×2 (16:16)
[2018-02-05] MEDS ORDERED: Potassium Chlor 20 mEq Premix 20 MEQ/100 ML PIGGYBACK IV.SIG PRN ×2 (16:16)
[2018-02-05] MEDS ORDERED: Potassium Phosphate Inj 30 MMOL in Sodium Chlor 0.9% Inj 250 ML IV.SIG PRN (16:16)
[2018-02-05] MEDS ORDERED: Sodium Phosphate Inj 30 MMOL in Sodium Chlor 0.9% Inj 250 ML IV.SIG PRN (16:16)
[2018-02-05] MEDS ORDERED: Magnesium Sulfate Inj 2 GM in Sodium Chlor 0.9% Inj 96 ML IV.SIG PRN (16:16)
[2018-02-05] MEDS ORDERED: Magnesium Sulfate Inj 4 GM in Sodium Chlor 0.9% Inj 92 ML IV.SIG PRN (16:16)
[2018-02-05] MEDS ORDERED: Potassium Chloride 25 MEQ Effervescent Tablet PO PRN (16:16)
[2018-02-05] MEDS ORDERED: Magnesium Oxide 400 MG Tablet PO PRN (16:16)
[2018-02-05] MEDS: Insulin NovoLOG Aspart Correctional Sugar Inj SQ SCH (17:54)
[2018-02-05] MEDS: Famotidine PF Inj 20 MG/2 ML Vial IV.PUSH SCH (21:13)
[2018-02-06] MEDS ORDERED: Chlorhexidine Gluconate 2% 1 Pack (2 Cloths) TOPICAL PRN (04:00)
[2018-02-06] MEDS: Insulin NovoLOG Aspart Correctional Sugar Inj SQ SCH ×3 (05:45→12:54)
[2018-02-06] MEDS: Chlorhexidine Gluconate 2% 1 Pack (2 Cloths) TOPICAL SCH (05:46)
[2018-02-06] MEDS: Sod Chloride 0.9% Inj 1,000 ML IV.CONT SCH ×2 (07:08→22:27)
[2018-02-06] MEDS: Famotidine PF Inj 20 MG/2 ML Vial IV.PUSH SCH ×2 (09:20→21:10)
--- NOTE | 2018-02-06 09:48 | P.PNVS ---
Subjective Subjective/Hospital Course: 02/06/2018 Referral received Full consult today Thanks J Objective Vital Signs / I&O: Vital Signs 02/05/18 11:38 02/05/18 15:11 02/05/18 15:15 Temperature 98.0 F Pulse Rate 64 87 Respiratory Rate 21 16 20 Blood Pressure 221/100 H 131/73 143/69 H Pulse Oximetry 97 97 96 02/05/18 15:30 02/05/18 15:45 02/05/18 16:00 Temperature Pulse Rate 83 105 H 82 Respiratory Rate 13 23 13 Blood Pressure 143/66 H 155/74 H 133/64 Pulse Oximetry 98 97 97 02/05/18 16:15 02/05/18 16:30 02/05/18 16:45 Temperature Pulse Rate 74 79 79 Respiratory Rate 15 13 16 Blood Pressure 119/63 144/69 H 141/81 H Pulse Oximetry 97 98 98 02/05/18 16:55 02/05/18 16:58 02/05/18 17:00 Temperature Pulse Rate 81 83 83 Respiratory Rate 19 24 24 Blood Pressure 165/83 H 165/83 H Pulse Oximetry 99 99 99 02/05/18 17:15 02/05/18 17:30 02/05/18 17:32 Temperature 98.3 F Pulse Rate 87 90 84 Respiratory Rate 20 26 H 33 H Blood Pressure 174/83 H 149/102 H 141/71 H Pulse Oximetry 98 97 97 02/05/18 17:41 02/05/18 17:45 02/05/18 18:00 Temperature Pulse Rate 75 84 85 Respiratory Rate 14 10 L 16 Blood Pressure 152/75 H 159/75 H Pulse Oximetry 100 98 02/05/18 18:15 02/05/18 18:29 02/05/18 18:35 Temperature Pulse Rate 92 H 88 91 H Respiratory Rate 25 H 23 24 Blood Pressure 183/84 H 192/77 H 135/89 Pulse Oximetry 98 98 98 02/05/18 19:00 02/05/18 19:20 02/05/18 19:28 Temperature Pulse Rate 82 79 83 Respiratory Rate 14 15 13 Blood Pressure 145/67 H 146/69 H Pulse Oximetry 98 98 98 02/05/18 19:30 02/05/18 19:45 02/05/18 19:58 Temperature Pulse Rate 77 78 86 Respiratory Rate 16 15 16 Blood Pressure 144/70 H 146/69 H Pulse Oximetry 98 98 100 02/05/18 20:00 02/05/18 20:15 02/05/18 20:30 Temperature 98.7 F Pulse Rate 81 93 H 90 Respiratory Rate 20 13 20 Blood Pressure 146/71 H 130/61 143/67 H Pulse Oximetry 98 100 98 02/05/18 20:45 02/05/18 21:00 02/05/18 22:00 Temperature Pulse Rate 85 98 H 79 Respiratory Rate 16 25 H 17 Blood Pressure 143/67 H 148/73 H 149/71 H Pulse Oximetry 97 97 97 02/05/18 23:00 02/06/18 00:00 02/06/18 01:00 Temperature 98.7 F Pulse Rate 70 82 78 Respiratory Rate 21 28 H 27 H Blood Pressure 151/64 H 147/67 H 142/67 H Pulse Oximetry 98 97 98 02/06/18 02:00 02/06/18 03:00 02/06/18 04:00 Temperature 98.7 F Pulse Rate 69 62 64 Respiratory Rate 17 16 16 Blood Pressure 134/68 141/66 H 123/60 Pulse Oximetry 97 96 97 02/06/18 05:00 02/06/18 06:00 02/06/18 07:00 Temperature Pulse Rate 70 67 68 Respiratory Rate 11 L 21 18 Blood Pressure 136/65 92/53 L 158/71 H Pulse Oximetry 97 98 98 02/06/18 07:44 Temperature Pulse Rate 77 Respiratory Rate 12 Blood Pressure Pulse Oximetry 98 Intake & Output 02/05/18 02/06/18 02/06/18 18:59 06:59 18:59 Intake Total 457 / 457 0 / 0 1000 / 1000 Output Total 600 / 600 800 / 800 Balance -143 / -143 -800 / -800 1000 / 1000 Weight 74.843 kg 70.4 kg Intake: IV 457 / 457 1000 / 1000 NS Inj 1,000 ML @ 70 mls/hr IV. 400 / 400 1000 / 1000 CONT .[id number] [facility] Rx#:[id number] Activase Drip 57 MG In Bag/ 57 / 57 Syringe 1 EACH @ 57 mls/hr IV. SIG ONCE ONE Rx#:[id number] Oral 0 / 0 Output: Urine 600 / 600 800 / 800 Other: # Voids 4 Date of Last Bowel Movement 02/04/18 02/04/18 # Bowel Movements 0 Weight On Admission 70.6 kg Laboratory Results - last 24 hr 02/05/18 02/05/18 02/05/18 11:20 11:20 11:20 WBC 7.8 RBC 4.58 Hgb 14.4 POC Hgb (Calc) Hct 42.2 POC Hct MCV 92.0 MCH 31.4 MCHC 34.1 RDW 14.0 Plt Count 181 MPV 9.3 Neut % (Auto) 62.7 Lymph % (Auto) 23.5 [place] % (Auto) 10.0 H Eos % (Auto) 2.9 Baso % (Auto) 0.9 Neut # (Auto) 4.9 Lymph # (Auto) 1.8 [place] # (Auto) 0.8 Eos # (Auto) 0.2 Baso # (Auto) 0.1 WBC Differential . Differential Comment Auto diff final PT 10.3 INR 1.0 APTT 25.0 Fibrinogen 323 POC Sodium POC Potassium POC Chloride POC BUN POC Creatinine POC Glucose Total Creatine Kinase Troponin I Triglycerides Cholesterol LDL Cholesterol, Calc HDL Cholesterol Cholesterol/HDL Ratio Urine Color Urine Clarity Urine pH Ur Specific [place] Urine Protein Urine Glucose (UA) Urine Ketones Urine Occult Blood Urine Nitrate Urine Bilirubin Urine Urobilinogen Ur Leukocyte Esterase Urine RBC Urine WBC Ur Squamous Epith Cells Urine Mucus Micro UA Comment Ur Microscopic Review Urine Culture Comments Nasal Screen MRSA (PCR) Urine Opiates Screen Ur Barbiturates Screen Ur Amphetamines Screen U Benzodiazepines Scrn Urine Cocaine Screen U Cannabinoids Screen Blood Type O Positive Antibody Screen Negative 02/05/18 02/05/18 02/05/18 11:20 11:20 11:20 WBC RBC Hgb POC Hgb (Calc) 14.3 Hct POC Hct 42.0 MCV MCH MCHC RDW Plt Count MPV Neut % (Auto) Lymph % (Auto) [place] % (Auto) Eos % (Auto) Baso % (Auto) Neut # (Auto) Lymph # (Auto) [place] # (Auto) Eos # (Auto) Baso # (Auto) WBC Differential Differential Comment PT INR APTT Fibrinogen POC Sodium 142 POC Potassium 3.8 POC Chloride 102 POC BUN 13 POC Creatinine 0.9 POC Glucose 102 Total Creatine Kinase 51 Troponin I Less than 0.02 L Triglycerides 70 Cholesterol 145 LDL Cholesterol, Calc 64 HDL Cholesterol 67.0 H Cholesterol/HDL Ratio 2.16 Urine Color Urine Clarity Urine pH Ur Specific [place] Urine Protein Urine Glucose (UA) Urine Ketones Urine Occult Blood Urine Nitrate Urine Bilirubin Urine Urobilinogen Ur Leukocyte Esterase Urine RBC Urine WBC Ur Squamous Epith Cells Urine Mucus Micro UA Comment Ur Microscopic Review Urine Culture Comments Nasal Screen MRSA (PCR) Urine Opiates Screen Ur Barbiturates Screen Ur Amphetamines Screen U Benzodiazepines Scrn Urine Cocaine Screen U Cannabinoids Screen Blood Type Antibody Screen 02/05/18 02/05/18 02/05/18 12:26 12:26 16:17 WBC RBC Hgb POC Hgb (Calc) Hct POC Hct MCV MCH MCHC RDW Plt Count MPV Neut % (Auto) Lymph % (Auto) [place] % (Auto) Eos % (Auto) Baso % (Auto) Neut # (Auto) Lymph # (Auto) [place] # (Auto) Eos # (Auto) Baso # (Auto) WBC Differential Differential Comment PT INR APTT Fibrinogen POC Sodium POC Potassium POC Chloride POC BUN POC Creatinine POC Glucose Total Creatine Kinase Troponin I Triglycerides Cholesterol LDL Cholesterol, Calc HDL Cholesterol Cholesterol/HDL Ratio Urine Color Straw Urine Clarity Clear Urine pH 7.0 Ur Specific [place] 1.021 Urine Protein Negative Urine Glucose (UA) Negative Urine Ketones Negative Urine Occult Blood Negative Urine Nitrate Negative Urine Bilirubin Negative Urine Urobilinogen Less than 2 Ur Leukocyte Esterase Negative Urine RBC Less than 1 Urine WBC Less than 1 Ur Squamous Epith Cells <1 Urine Mucus Few H Micro UA Comment Culture not ind Ur Microscopic Review Not Reportable Urine Culture Comments Culture not ind Nasal Screen MRSA (PCR) Not detected Urine Opiates Screen Neg Ur Barbiturates Screen Neg Ur Amphetamines Screen Neg U Benzodiazepines Scrn Neg Urine Cocaine Screen Neg U Cannabinoids Screen Neg Blood Type Antibody Screen 02/05/18 17:43 WBC RBC Hgb POC Hgb (Calc) Hct POC Hct MCV MCH MCHC RDW Plt Count MPV Neut % (Auto) Lymph % (Auto) [place] % (Auto) Eos % (Auto) Baso % (Auto) Neut # (Auto) Lymph # (Auto) [place] # (Auto) Eos # (Auto) Baso # (Auto) WBC Differential Differential Comment PT INR APTT Fibrinogen POC Sodium POC Potassium POC Chloride POC BUN POC Creatinine POC Glucose 88 Total Creatine Kinase Troponin I Triglycerides Cholesterol LDL Cholesterol, Calc HDL Cholesterol Cholesterol/HDL Ratio Urine Color Urine Clarity Urine pH Ur Specific [place] Urine Protein Urine Glucose (UA) Urine Ketones Urine Occult Blood Urine Nitrate Urine Bilirubin Urine Urobilinogen Ur Leukocyte Esterase Urine RBC Urine WBC Ur Squamous Epith Cells Urine Mucus Micro UA Comment Ur Microscopic Review Urine Culture Comments Nasal Screen MRSA (PCR) Urine Opiates Screen Ur Barbiturates Screen Ur Amphetamines Screen U Benzodiazepines Scrn Urine Cocaine Screen U Cannabinoids Screen Blood Type Antibody Screen Impressions Head MRI 02/05/18 00:00 CONCLUSION: 1. Linear area of acute infarction at a cortical gyrus of the left frontoparietal region. 2. Adjacent encephalomalacia in the left frontoparietal region. 3. Suspected small vessel ischemic change in the white matter. 4. Age-related atrophy. Chest X-Ray 02/05/18 11:19 CONCLUSION: No evidence of acute cardiopulmonary process. Head CT 02/05/18 11:19 CONCLUSION: 1. No evidence of acute infarct or hemorrhage. 2. Left frontal parietal encephalomalacia consistent with old infarct. Report was called by [Dr. Richardson ]to E pod nursing staff. Head CTA 02/05/18 11:19 CONCLUSION: No evidence of intraluminal filling defects or steno-occlusive disease. . Neck CTA 02/05/18 11:19 CONCLUSION: 1. Calcified plaque left carotid bifurcation with high-grade stenosis in the origin of the internal carotid artery (greater than 80%). 2. Mild eccentric plaque right carotid bifurcation without significant stenosis. 3. Patent symmetric vertebral arteries.
--- NOTE | 2018-02-06 10:37 | P.PNIM ---
Subjective Interval history: Patient still having expressive aphasia. He reports that it did not get worse but did not improve overnight. No focal weakness. Physical Exam Vital signs: Last Vital Signs Temp 98.7 F 02/06/18 02:00 Pulse 77 02/06/18 07:44 Resp 12 02/06/18 07:44 BP 158/71 H 02/06/18 07:00 Pulse Ox 98 02/06/18 07:44 Intake & Output 02/04/18 02/05/18 02/06/18 02/07/18 06:59 06:59 06:59 06:59 Intake Total 457 / 457 1000 / 1000 Output Total 1400 / 1400 Balance -943 / -943 1000 / 1000 Weight 70.4 kg Narrative: GENERAL: This is a well-nourished, well-developed patient, in no apparent distress. CARDIOVASCULAR: Normal rate and regular rhythm without murmurs, gallops, or rubs. RESPIRATORY: Good respiratory efforts. Breath sounds equal and clear to auscultation bilaterally. GASTROINTESTINAL: Abdomen soft, non-tender, non-distended. Normal active bowel sounds MUSCULOSKELETAL: Extremities without cyanosis, or edema. NEURO: Alert & Oriented x4 to person, place, time, situation. Significant aphasia. He can answer yes or no to simple questions. No focal weakness. PSYCH: Appropriate mood and affect. Results Labs CBC & Chem 7: 02/06/18 13:41 02/06/18 13:41 Imaging Imaging: Impressions Head MRI 02/05/18 00:00 CONCLUSION: 1. Linear area of acute infarction at a cortical gyrus of the left frontoparietal region. 2. Adjacent encephalomalacia in the left frontoparietal region. 3. Suspected small vessel ischemic change in the white matter. 4. Age-related atrophy. Chest X-Ray 02/05/18 11:19 CONCLUSION: No evidence of acute cardiopulmonary process. Head CT 02/05/18 11:19 CONCLUSION: 1. No evidence of acute infarct or hemorrhage. 2. Left frontal parietal encephalomalacia consistent with old infarct. Report was called by [Dr. Richardson ]to [facility] nursing staff. Head CTA 02/05/18 11:19 CONCLUSION: No evidence of intraluminal filling defects or steno-occlusive disease. . Neck CTA 02/05/18 11:19 CONCLUSION: 1. Calcified plaque left carotid bifurcation with high-grade stenosis in the origin of the internal carotid artery (greater than 80%). 2. Mild eccentric plaque right carotid bifurcation without significant stenosis. 3. Patent symmetric vertebral arteries. Assessment and Plan (1) CVA (cerebral vascular accident): Code(s): I63.9 - Cerebral infarction, unspecified Status: Acute (2) Hypertension: Code(s): I10 - Essential (primary) hypertension Status: Chronic (3) Hyperlipidemia: Code(s): E78.5 - Hyperlipidemia, unspecified Status: Chronic (4) Elevated HDL: Code(s): E78.89 - Other lipoprotein metabolism disorders Status: Acute (5) Left carotid stenosis: Code(s): I65.22 - Occlusion and stenosis of left carotid artery Status: Acute Plan 77-year-old male admitted with acute left frontal parietal CVA with dysarthria and right-sided facial droop. Patient is status post TPA. He is found to have significant carotid artery stenosis. 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 CT angiogram of the neck revealed left carotid stenosis 80% -vascular surgery consulted by neurology CT angiogram of brain revealed no acute findings MRI brain revealed acute CVA at the cortical gyri of the left frontoparietal region Received alteplase 6.4 mg x1 followed by 57 mg over 1 hour Neurology/Dr. Marte following Repeat brain CT 24 hours post infusion Restart home BP meds and follow closely. Avoid hypotension 2D echocardiogram noted PT/OT/ST evaluate and treat Neurocheck Essential hypertension Hyperlipidemia -with elevated HDL Left carotid stenosis Patient initially received labetalol and nicardipine drip 2D echocardiogram unremarkable Continue home medications. Restart lisinopril and metoprolol. He normally takes amlodipine as well but continue to hold for now and monitor blood pressure. HDL is elevated. LDL is within normal limits. Vascular surgery for left carotid endarterectomy. Access -Utilize peripheral IV. Central line if indicated Prophylaxis -GI -famotidine -DVT -SCD/pharmacological prophylaxis contraindicated 24 hours post alteplase Progress Note: Quality VTE Deep Vein Thrombosis/Pulmonary Embolism Present on Admission: No _ (1) Hyperlipidemia Qualifiers: Hyperlipidemia type: unspecified Qualified Code(s): E78.5 - Hyperlipidemia, unspecified (2) Hypertension Qualifiers: Hypertension type: unspecified Qualified Code(s): I10 - Essential (primary) hypertension (3) CVA (cerebral vascular accident) Qualifiers: CVA mechanism: unspecified Laterality of affected vessel: Precerebral and cerebral artery: Qualified Code(s): I63.9 - Cerebral infarction, unspecified
--- NOTE | 2018-02-06 13:29 | CT ---
EXAM DATE: 02/06/2018 1:18 PM EST AGE/SEX: 77 years / Male INDICATIONS: Follow up 24 hour post TPA CLINICAL DATA: This is the patient's initial encounter. Patient reports that signs and symptoms have been present for 1 day and indicates a pain score of 2/10. MEDICAL/SURGICAL HISTORY: Hypertension. Cerebrovascular disease. Cholecystectomy. Appendectomy. RADIATION DOSE: 36.66 CTDI (mGy) COMPARISON: [facility] – [place], MR HEAD W & W/O CONTRAST, 02/05/2018. . TECHNIQUE: CT of the head without contrast. Using automated exposure control and adjustment of the mA and/or kV according to patient size, radiation dose was kept as low as reasonably achievable to ob tain optimal diagnostic quality images. DICOM format image data is available electronically for revi ew and comparison. FINDINGS: Cerebrum: Redemonstration of encephalomalacia in the left frontal high convexities with nearly punct ate region of increased density corresponding to the region of acute cortical infarct noted on MRI ex am. Moderate diffuse cerebral atrophy. The ventricles are normal for degree of atrophy. No evidence o f midline shift or gross mass lesion. No extraaxial fluid collections are seen. Posterior Fossa: The cerebellum and brainstem are intact. The 4th ventricle is midline. The cerebe llopontine angle is unremarkable. Extracranial: The visualized portion of the orbits is intact. Skull: The calvaria is intact. No evidence of skull fracture. CONCLUSION: 1. Encephalomalacia defect in the left frontal high convexities with nearly punctate region of incre ased density corresponding to the region of adjacent acute cortical infarct noted on MRI exam. Differ ential considerations include evolving acute infarction versus less likely punctate hemorrhage. . Electronically signed by: Socrates Mercado MD 02/06/2018 1:28 PM EST
[2018-02-06] MEDS: Lisinopril 5 MG Tablet PO SCH (13:36)
[2018-02-06] MEDS: Metoprolol Tartrate 50 MG Tablet PO SCH ×2 (13:36→21:10)
--- NOTE | 2018-02-06 13:49 | ECHRPT ---
Indication: CVA/TIA CONCLUSIONS Normal left ventricular size and wall thickness. The left ventricular systolic function is normal wi th an estimated ejection fraction in the range of 60-65%. No definite regional wall motion abnormalities are present. The aortic valve is not well visualized. Trileaflet aortic valve. Trace aortic valve regurgitation. There is trace tricuspid valve regurgitation. BP: 162 / 72 HR: 82 Rhythm: MEASUREMENTS (Male / Female) Normal Values Technical Quality:Fair 2D ECHO LV Diastolic Diameter PLAX 4.3 cm 4.2 - 5.9 / 3.9 - 5.3 cm LV Systolic Diameter PLAX 2.8 cm IVS Diastolic Thickness 1.3 cm 0.6 - 1.0 / 0.6 - 0.9 cm LVPW Diastolic Thickness 1.3 cm 0.6 - 1.0 / 0.6 - 0.9 cm LV Relative Wall Thickness 0.6 RV Internal Dim ED PLAX 3.4 cm LVOT Diameter 2.2 cm Aortic Root Diameter 3.6 cm LA Systolic Diameter LX 3.2 cm 3.0 - 4.0 / 2.7 - 3.8 cm DOPPLER AV Peak Velocity 132.0 cm/s AV Peak Gradient 7.0 mmHg LVOT Peak Velocity 92.8 cm/s LVOT Peak Gradient 3.4 mmHg AV Area Cont Eq pk 2.7 cm Mitral E Point Velocity 49.9 cm/s Mitral A Point Velocity 89.3 cm/s Mitral E to A Ratio 0.6 LV E' Lateral Velocity 9.3 cm/s Mitral E to LV E' Lateral Ratio 5.4 LV E' Septal Velocity 5.1 cm/s Mitral E to LV E' Septal Ratio 9.8 TR Peak Velocity 312.0 cm/s TR Peak Gradient 38.9 mmHg Right Atrial Pressure 10.0 mmHg Pulmonary Artery Systolic Pressu 48.9 mmHg Right Ventricular Systolic Press 48.9 mmHg PV Peak Velocity 71.9 cm/s PV Peak Gradient 2.1 mmHg FINDINGS LEFT VENTRICLE Normal left ventricular size and wall thickness. The left ventricular systolic function is normal wi th an estimated ejection fraction in the range of 60-65%. No definite regional wall motion abnormalities are present. RIGHT VENTRICLE Normal right ventricular size and systolic function. LEFT ATRIUM The left atrial size is normal. RIGHT ATRIUM The right atrial size is normal. ATRIAL SEPTUM Normal atrial septal thickness without atrial level shunting by limited color doppler interrogation. AORTA The aortic root and proximal ascending aorta are normal in size on limited imaging. MITRAL VALVE Structurally normal mitral valve. No mitral valve stenosis or regurgitation. AORTIC VALVE The aortic valve is not well visualized. Trileaflet aortic valve. Trace aortic valve regurgitation. TRICUSPID VALVE There is trace tricuspid valve regurgitation. PULMONARY VALVE The pulmonary valve is not well visualized. VESSELS The inferior vena cava was not well visualized. PERICARDIUM No pericardial effusion. Zhen Sykes MD (Electronically Signed) Final Date:06 February 2018 13:47
[2018-02-06 13:57] LABS: Baso % (Auto) 0.5 % (0.0-2.0); Eos # (Auto) 0.1 th/mm3 (0.0-0.4); Eos % (Auto) 1.3 % (0.0-4.0); Hematocrit 40.9 % (39.0-51.0); Lymph # (Auto) 1.6 th/mm3 (1.0-4.8); Lymph % (Auto) 21.4 % (9.0-44.0); Mean Corpuscular HGB Conc 34.3 % (32.0-36.0); Mean Corpuscular Hemoglobin 30.9 pg (27.0-34.0); Mean Platelet Volume 9.2 fL (7.0-11.0); Mono # (Auto) 0.9 th/mm3 (0.0-0.9); Mono % (Auto) 11.7 % (0.0-8.0); Neut # (Auto) 4.9 th/mm3 (1.8-7.7); Neut % (Auto) 65.1 % (16.0-70.0); Platelet Count 176 th/mm3 (150-450); Red Blood Count 4.54 mil/mm3 (4.50-5.90); Red Cell Distribution Width 13.8 % (11.6-17.2); White Blood Count 7.6 th/mm3 (4.0-11.0)
[2018-02-06 14:04] LABS: INR 1.1 Ratio; Prothrombin Time 10.8 sec (9.8-11.6)
[2018-02-06 14:25] LABS: Alanine Aminotransferase 14 U/L (12-78); Albumin 3.5 g/dL (3.4-5.0); Anion Gap 10 meq/L (5-15); Aspartate Aminotransferase 11 U/L (15-37); Blood Urea Nitrogen 9 mg/dL (7-18); Carbon Dioxide 22.9 meq/L (21.0-32.0); Chloride 110 meq/L (98-107); Glomerular Filtration Rate Greater Than 89 mL/min (>89); Glucose,Random 90 mg/dL (74-106); Magnesium 2.1 mg/dL (1.5-2.5); Phosphorus 3.1 mg/dL (2.5-4.9); Potassium 3.4 meq/L (3.5-5.1); Sodium 143 meq/L (136-145)
[2018-02-06 14:34] LABS: Alkaline Phosphatase 86 U/L (45-117); Thyroid Stimulating Hormone 0.468 uIU/mL (0.358-3.740); Total Protein 7.1 g/dL (6.4-8.2)
--- NOTE | 2018-02-06 16:35 | P.PNNEU ---
Subjective Subjective Comments: Pt feels speech is improving with Bermudian. Feels his Austrian is not affected as much Denies focal weakness Active Medications: Active Medications Albuterol (Albuterol Neb (Prn)) 2.5 mg NEB Q2HR NEB PRN PRN Reason: DYSPNEA Albuterol (Duoneb Neb (Juan)) 1 ampul NEB Q4HR NEB JUAN Last Admin: 02/06/18 16:29 Dose: 1 ampul Chlorhexidine Gluconate (Chlorhexidine 2% Cloth) 3 pack TOPICAL DAILY@0400 JUAN Stop: 02/11/18 03:59 Last Admin: 02/06/18 05:46 Dose: 3 pack Chlorhexidine Gluconate (Chlorhexidine 2% Cloth) 3 pack TOPICAL DAILY@0400 PRN PRN Reason: Extra cloth needed Stop: 02/11/18 03:59 Clopidogrel Bisulfate (Plavix) 75 mg PO DAILY JUAN Famotidine (Pepcid Pf Inj) 20 mg IV.PUSH Q12HR JUAN Last Admin: 02/06/18 09:20 Dose: 20 mg Nicardipine HCl 25 mg/ Sodium (Chloride) 250 mls @ 50 mls/hr IV.CONT TITRATE PRN; Protocol PRN Reason: Per Protocol Last Titration: 02/05/18 16:15 Dose: 0 mg/hr, 0 mls/hr Acetaminophen (Ofirmev Inj) 650 mg in 65 mls @ 400 mls/hr IV.SIG Q6H PRN PRN Reason: PAIN SCALE 1 TO 10 Magnesium Sulfate 4 gm/ Sodium (Chloride) 100 mls @ 50 mls/hr IV.SIG UNSCH PRN PRN Reason: For Magnesium 0.9 - 1.1 mg/dL Magnesium Sulfate 2 gm/ Sodium (Chloride) 100 mls @ 50 mls/hr IV.SIG UNSCH PRN PRN Reason: For Magnesium 1.2 - 1.6 mg/dL Potassium Chloride (Kcl 40 Meq Premix Inj) 40 meq in 100 mls @ 25 mls/hr IV.SIG Q2H PRN PRN Reason: For Potassium 2.8 - 3.2 mEq/L Potassium Chloride (Kcl 20 Meq Premix Inj) 20 meq in 100 mls @ 50 mls/hr IV.SIG Q2H PRN PRN Reason: For Potassium 3.3 - 3.5 mEq/L Potassium Chloride (Kcl 40 Meq Premix Inj) 40 meq in 100 mls @ 25 mls/hr IV.SIG UNSCH PRN PRN Reason: For Potassium 3.3 - 3.5 mEq/L Potassium Chloride (Kcl 20 Meq Premix Inj) 20 meq in 100 mls @ 50 mls/hr IV.SIG Q2H PRN PRN Reason: For Potassium 2.8 - 3.2 mEq/L Potassium Phosphate 30 mmol/ (Sodium Chloride) 260 mls @ 42 mls/hr IV.SIG UNSCH PRN PRN Reason: SEE LABEL COMMENTS Sodium Phosphate 30 mmol/ (Sodium Chloride) 260 mls @ 42 mls/hr IV.SIG UNSCH PRN PRN Reason: For Phosphorus < 2.5 mg/dL Sodium Chloride (Ns Inj) 1,000 mls @ 70 mls/hr IV.CONT .[id number] [facility] Last Admin: 02/06/18 07:08 Dose: 70 mls/hr Labetalol HCl (Trandate Inj) 10 mg IV.PUSH Q2H PRN PRN Reason: For SBP > 180 or DBP > 105 Lactulose (Lactulose Liq) 30 ml PO DAILY PRN PRN Reason: SEVERE CONSITIPATION Lisinopril (Prinivil) 5 mg PO DAILY [facility] Last Admin: 02/06/18 13:36 Dose: 5 mg Magnesium Oxide (Mag-Ox) 800 mg PO UNSCH PRN PRN Reason: For Magnesium 1.2 - 1.6 mg/dL Metoprolol Tartrate (Lopressor) 25 mg PO BID [facility] Last Admin: 02/06/18 13:36 Dose: 25 mg Potassium Bicarb/Potassium Chloride (K-Lyte Cl Eff) 50 meq PO UNSCH PRN PRN Reason: For Potassium 3.3 - 3.5 mEq/L Potassium Phosphate (K-Phos Original) 2,000 mg PO UNSCH PRN PRN Reason: SEE LABEL COMMENTS Potassium Phosphate (K-Phos Original) 2,000 mg PO Q4H PRN PRN Reason: Phosphorus Less Than 2.5 mg/dL Allergies/Adverse Reactions: Allergies Allergy/AdvReac Type Severity Reaction Status Date / Time hornet venom Allergy Severe unknown Verified 02/05/18 11:44 atorvastatin Allergy Unknown unknown Verified 02/05/18 11:44 Physical Exam Vital signs: Vital Signs 02/05/18 16:45 02/05/18 16:55 02/05/18 16:58 Temperature Pulse Rate 79 81 83 Respiratory Rate 16 19 24 Blood Pressure 141/81 H 165/83 H Pulse Oximetry 98 99 99 02/05/18 17:00 02/05/18 17:15 02/05/18 17:30 Temperature 98.3 F Pulse Rate 83 87 90 Respiratory Rate 24 20 26 H Blood Pressure 165/83 H 174/83 H 149/102 H Pulse Oximetry 99 98 97 02/05/18 17:32 02/05/18 17:41 02/05/18 17:45 Temperature Pulse Rate 84 75 84 Respiratory Rate 33 H 14 10 L Blood Pressure 141/71 H 152/75 H Pulse Oximetry 97 100 02/05/18 18:00 02/05/18 18:15 02/05/18 18:29 Temperature Pulse Rate 85 92 H 88 Respiratory Rate 16 25 H 23 Blood Pressure 159/75 H 183/84 H 192/77 H Pulse Oximetry 98 98 98 02/05/18 18:35 02/05/18 19:00 02/05/18 19:20 Temperature Pulse Rate 91 H 82 79 Respiratory Rate 24 14 15 Blood Pressure 135/89 145/67 H Pulse Oximetry 98 98 98 02/05/18 19:28 02/05/18 19:30 02/05/18 19:45 Temperature Pulse Rate 83 77 78 Respiratory Rate 13 16 15 Blood Pressure 146/69 H 144/70 H 146/69 H Pulse Oximetry 98 98 98 02/05/18 19:58 02/05/18 20:00 02/05/18 20:15 Temperature 98.7 F Pulse Rate 86 81 93 H Respiratory Rate 16 20 13 Blood Pressure 146/71 H 130/61 Pulse Oximetry 100 98 100 02/05/18 20:30 02/05/18 20:45 02/05/18 21:00 Temperature Pulse Rate 90 85 98 H Respiratory Rate 20 16 25 H Blood Pressure 143/67 H 143/67 H 148/73 H Pulse Oximetry 98 97 97 02/05/18 22:00 02/05/18 23:00 02/06/18 00:00 Temperature 98.7 F Pulse Rate 79 70 82 Respiratory Rate 17 21 28 H Blood Pressure 149/71 H 151/64 H 147/67 H Pulse Oximetry 97 98 97 02/06/18 01:00 02/06/18 02:00 02/06/18 03:00 Temperature 98.7 F Pulse Rate 78 69 62 Respiratory Rate 27 H 17 16 Blood Pressure 142/67 H 134/68 141/66 H Pulse Oximetry 98 97 96 02/06/18 04:00 02/06/18 05:00 02/06/18 06:00 Temperature Pulse Rate 64 70 67 Respiratory Rate 16 11 L 21 Blood Pressure 123/60 136/65 92/53 L Pulse Oximetry 97 97 98 02/06/18 07:00 02/06/18 07:44 02/06/18 08:00 Temperature Pulse Rate 68 77 Respiratory Rate 18 12 Blood Pressure 158/71 H Pulse Oximetry 98 98 97 02/06/18 09:00 02/06/18 10:56 02/06/18 11:00 Temperature Pulse Rate 67 77 81 Respiratory Rate 16 19 Blood Pressure 162/70 H Pulse Oximetry 97 97 02/06/18 11:08 02/06/18 11:11 02/06/18 11:26 Temperature Pulse Rate 75 80 103 H Respiratory Rate 18 12 18 Blood Pressure 155/66 H 153/70 H Pulse Oximetry 97 98 02/06/18 11:41 02/06/18 11:51 02/06/18 11:56 Temperature Pulse Rate 103 H 101 H 103 H Respiratory Rate 24 24 22 Blood Pressure 191/78 H 172/73 H 172/71 H Pulse Oximetry 98 98 97 02/06/18 12:00 02/06/18 12:11 02/06/18 12:26 Temperature Pulse Rate 98 H 92 H 86 Respiratory Rate 24 22 16 Blood Pressure 162/72 H 146/67 H Pulse Oximetry 97 97 97 02/06/18 12:41 02/06/18 12:56 02/06/18 13:00 Temperature Pulse Rate 87 86 91 H Respiratory Rate 17 18 24 Blood Pressure 137/55 L 131/63 Pulse Oximetry 98 96 99 02/06/18 13:11 02/06/18 13:26 02/06/18 13:41 Temperature Pulse Rate 78 81 82 Respiratory Rate 17 23 25 H Blood Pressure 165/77 H 176/76 H 151/86 H Pulse Oximetry 97 97 98 02/06/18 13:56 02/06/18 14:00 02/06/18 14:11 Temperature Pulse Rate 86 90 88 Respiratory Rate 24 24 20 Blood Pressure 165/82 H 163/84 H Pulse Oximetry 97 98 97 02/06/18 14:26 02/06/18 14:41 02/06/18 14:56 Temperature Pulse Rate 69 64 65 Respiratory Rate 20 19 23 Blood Pressure 149/74 H 151/80 H 138/69 Pulse Oximetry 97 97 98 02/06/18 15:00 02/06/18 15:11 02/06/18 15:26 Temperature Pulse Rate 64 59 L 59 L Respiratory Rate 19 18 24 Blood Pressure 151/69 H 156/77 H Pulse Oximetry 97 98 98 02/06/18 15:41 02/06/18 15:56 02/06/18 16:00 Temperature Pulse Rate 66 63 69 Respiratory Rate 24 23 22 Blood Pressure 161/87 H 161/68 H Pulse Oximetry 98 99 99 02/06/18 16:30 Temperature Pulse Rate 16 L Respiratory Rate 22 Blood Pressure Pulse Oximetry Intake & Output 02/05/18 02/06/18 02/06/18 18:59 06:59 18:59 Intake Total 457 / 457 0 / 0 1000 / 1000 Output Total 600 / 600 800 / 800 Balance -143 / -143 -800 / -800 1000 / 1000 Weight 74.843 kg 70.4 kg Intake: IV 457 / 457 1000 / 1000 NS Inj 1,000 ML @ 70 mls/hr IV. 400 / 400 1000 / 1000 CONT .[id number] [facility] Rx#:[id number] Activase Drip 57 MG In Bag/ 57 / 57 Syringe 1 EACH @ 57 mls/hr IV. SIG ONCE ONE Rx#:[id number] Oral 0 / 0 Output: Urine 600 / 600 800 / 800 Other: # Voids 4 Date of Last Bowel Movement 02/04/18 02/04/18 # Bowel Movements 0 Weight On Admission 70.6 kg - Routine Neurological Exam alert, speech in Bermudian is nonfluent but improved from yesterday CN intact MOTOR 5/5 BUE and BLE, no drift Objective Radiology Results: CT 24 hr post TPA--left frontal encephalomalacia and evolving cva. ?? area of punctate hemorrhage MRI brain --old left frontal stroke with a small linear gyriform area of acute infarction. NO hemorrhage. Laboratory Results - last 24 hr 02/05/18 02/05/18 02/06/18 16:17 17:43 13:34 WBC RBC Hgb Hct MCV MCH MCHC RDW Plt Count MPV Neut % (Auto) Lymph % (Auto) [place] % (Auto) Eos % (Auto) Baso % (Auto) Neut # (Auto) Lymph # (Auto) [place] # (Auto) Eos # (Auto) Baso # (Auto) WBC Differential Differential Comment PT 10.8 INR 1.1 Sodium Potassium Chloride Carbon Dioxide Anion Gap BUN Creatinine Estimated GFR POC Glucose 88 Random Glucose Calcium Phosphorus Magnesium Total Bilirubin AST ALT Alkaline Phosphatase Total Protein Albumin TSH Nasal Screen MRSA (PCR) Not detected 02/06/18 02/06/18 13:41 13:41 WBC 7.6 RBC 4.54 Hgb 14.0 Hct 40.9 MCV 90.0 MCH 30.9 MCHC 34.3 RDW 13.8 Plt Count 176 MPV 9.2 Neut % (Auto) 65.1 Lymph % (Auto) 21.4 [place] % (Auto) 11.7 H Eos % (Auto) 1.3 Baso % (Auto) 0.5 Neut # (Auto) 4.9 Lymph # (Auto) 1.6 [place] # (Auto) 0.9 Eos # (Auto) 0.1 Baso # (Auto) 0.0 WBC Differential . Differential Comment Auto diff final PT INR Sodium 143 Potassium 3.4 L Chloride 110 H Carbon Dioxide 22.9 Anion Gap 10 BUN 9 Creatinine 0.83 Estimated GFR Greater than 89 POC Glucose Random Glucose 90 Calcium 8.0 L Phosphorus 3.1 Magnesium 2.1 Total Bilirubin 1.9 H AST 11 L ALT 14 Alkaline Phosphatase 86 Total Protein 7.1 Albumin 3.5 TSH 0.468 Nasal Screen MRSA (PCR) Review/Management - Review/Management Plan: start Plavix 75 mg daily Agree with plan to proceed with left carotid endarterectomy later in the week Will repeat MRI in a day or so to further evaluate the stroke and r/o hemorrhage.
--- NOTE | 2018-02-06 16:37 | MB ---
cc: Wilfrid Bae MD DATE: 02/06/2018 CONSULTING PHYSICIAN: Dr. Bae, Vascular Surgery REASON FOR CONSULTATION: Left critical carotid stenosis and a left hemispheric ischemic stroke. HISTORY OF PRESENT DISEASE: This 77-year-old gentleman presented to the hospital yesterday with facial drooping and expressive aphasia. Patient noted that he was dysarthric around 10 o'clock in the morning. A stroke alert was called and the patient received Alteplase, which is now in progress. Vascular surgery consult has been requested. PAST MEDICAL HISTORY: Hyperlipidemia, known left carotid stenosis, CVA about 16 years ago and then hemorrhagic traumatic CVA in 2011 that also presented with expressive aphasia. SURGICAL HISTORY: The patient is a poor historian and surgical history is gotten from the chart. He had a cholecystectomy, hip replacement, appendectomy. MEDICATIONS: Can be found in the record. SOCIAL HISTORY: The patient does not smoke, never did. Does not drink. PHYSICAL EXAMINATION: GENERAL: Reveals a pleasant 77-year-old gentleman; speaks Slovenian and Gabonese. At this point the expressive aphasia seems to be a little easier with Gabonese, so that is what we did. HEENT: The patient is normocephalic. No trauma to head. Pupils are equal and reactive. Extraocular muscles intact. There is indeed slight left-sided droop of the mouth, but I would not have even noticed that if I was not reading it and did know that the patient had a stroke. It could be also simple facial dyssymmetry. Indeed, patient does have expressive dysphasia and dysarthria, which is quite noticeable and he is frustrated with not finding words, but he is getting better. Pupils equal, reactive. Extraocular muscles are intact. NECK: Bilateral carotid pulses. To be honest, I do not hear the bruit on the left side. CHEST: Bilateral breath sounds somewhat decreased. HEART: Regular rate and rhythm. The patient in sinus rhythm. Echo is pending. ABDOMEN: Soft. Active bowel sounds. No rebound, no guarding, masses. EXTREMITIES: The patient has bilateral femoral pulses. On palpation, bilateral Dopplerable popliteal, but I do not palpate this and bilateral posterior tibial and dorsalis pedis, which is not very strong. No acute vascular deficit, but slightly decreased capillary refill. This may be looked at, at some point in the future, but not right now. NEUROLOGIC: The patient is awake, alert and oriented. As above noted, has some degree of dysarthria; however, ____ seems to be intact. CONCLUSION: I reviewed laboratory and diagnostic procedures. This gentleman indeed has about 80%, probably 90%, left carotid artery stenosis, which is very critical and should be addressed at this admission. He does have an old encephalomalacia lesion in the left frontal lobe and next to it is extension of the current acute infarct, which is ischemic and quite small. At this point, I believe the best way to go is keep the patient in the hospital and then go ahead with a left carotid endarterectomy by the end of the week. The modern literature suggest about a week to 10 days waiting before doing the surgery. In the meantime, once the patient is done with Alteplase, he can be on Plavix and/or had heparin and we are going to proceed with surgery probably Tuesday or Tuesday. I thank you very much for the referral. CRITICAL CARE TIME: 38 minutes. MD TUAN Holman/luis enrique/rosmery , 03:18 PM , 03:29 PM
--- NOTE | 2018-02-06 16:55 | OTSOAPIP ---
PATIENT OFF THE FLOOR FOR CT SCAN- WILL ASSESS 02/07/18. Therapist: Latonia Jurado Signature on file
[2018-02-06 17:05] LABS: Hemoglobin A1c 5.5 % (4.3-6.0)
--- NOTE | 2018-02-06 18:20 | P.PNVS ---
Subjective Subjective/Hospital Course: 02/06/2018 Referral received Full consult today Thanks J 02/06/2018 This 77-year-old gentleman presented to the hospital yesterday with facial drooping and expressive aphasia. Patient noted that he was dysarthric around 10 o'clock in the morning. A stroke alert was called and the patient received Alteplase, which is now in progress. 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 I reviewed laboratory and diagnostic procedures. This gentleman indeed has about 80%, probably 90%, left carotid artery stenosis, which is very critical and should be addressed at this admission. He does have an old encephalomalacia lesion in the left frontal lobe and next to it is extension of the current acute infarct, which is ischemic and quite small. At this point, I believe the best way to proceed is keep the patient in the hospital and then go ahead with a left carotid endarterectomy by the end of the week. The modern literature suggest about a week to 10 days waiting before doing the surgery in patients with ischemic strokes. Dictum is completely different of course, for patients with hemorrhagic strokes in which situation probably we should wait about a month. In the meantime, once the patient is done with Alteplase, he can be on Plavix. Patient will have repeat MRI of the brain by the end of week to make sure there are no hemorrhagic areas and provided no surprises, we are going to proceed with left carotid endarterectomy probably Tuesday or Tuesday. Discussed with Dr. Marte neurology and we completely agree on the management plan Objective Vital Signs / I&O: Vital Signs 02/05/18 18:15 02/05/18 18:29 02/05/18 18:35 Temperature Pulse Rate 92 H 88 91 H Respiratory Rate 25 H 23 24 Blood Pressure 183/84 H 192/77 H 135/89 Pulse Oximetry 98 98 98 02/05/18 19:00 02/05/18 19:20 02/05/18 19:28 Temperature Pulse Rate 82 79 83 Respiratory Rate 14 15 13 Blood Pressure 145/67 H 146/69 H Pulse Oximetry 98 98 98 02/05/18 19:30 02/05/18 19:45 02/05/18 19:58 Temperature Pulse Rate 77 78 86 Respiratory Rate 16 15 16 Blood Pressure 144/70 H 146/69 H Pulse Oximetry 98 98 100 02/05/18 20:00 02/05/18 20:15 02/05/18 20:30 Temperature 98.7 F Pulse Rate 81 93 H 90 Respiratory Rate 20 13 20 Blood Pressure 146/71 H 130/61 143/67 H Pulse Oximetry 98 100 98 02/05/18 20:45 02/05/18 21:00 02/05/18 22:00 Temperature Pulse Rate 85 98 H 79 Respiratory Rate 16 25 H 17 Blood Pressure 143/67 H 148/73 H 149/71 H Pulse Oximetry 97 97 97 02/05/18 23:00 02/06/18 00:00 02/06/18 01:00 Temperature 98.7 F Pulse Rate 70 82 78 Respiratory Rate 21 28 H 27 H Blood Pressure 151/64 H 147/67 H 142/67 H Pulse Oximetry 98 97 98 02/06/18 02:00 02/06/18 03:00 02/06/18 04:00 Temperature 98.7 F Pulse Rate 69 62 64 Respiratory Rate 17 16 16 Blood Pressure 134/68 141/66 H 123/60 Pulse Oximetry 97 96 97 02/06/18 05:00 02/06/18 06:00 02/06/18 07:00 Temperature Pulse Rate 70 67 68 Respiratory Rate 11 L 21 18 Blood Pressure 136/65 92/53 L 158/71 H Pulse Oximetry 97 98 98 02/06/18 07:44 02/06/18 08:00 02/06/18 09:00 Temperature Pulse Rate 77 67 Respiratory Rate 12 Blood Pressure Pulse Oximetry 98 97 02/06/18 10:56 02/06/18 11:00 02/06/18 11:08 Temperature Pulse Rate 77 81 75 Respiratory Rate 16 19 18 Blood Pressure 162/70 H Pulse Oximetry 97 97 02/06/18 11:11 02/06/18 11:26 02/06/18 11:41 Temperature Pulse Rate 80 103 H 103 H Respiratory Rate 12 18 24 Blood Pressure 155/66 H 153/70 H 191/78 H Pulse Oximetry 97 98 98 02/06/18 11:51 02/06/18 11:56 02/06/18 12:00 Temperature Pulse Rate 101 H 103 H 98 H Respiratory Rate 24 22 24 Blood Pressure 172/73 H 172/71 H Pulse Oximetry 98 97 97 02/06/18 12:11 02/06/18 12:26 02/06/18 12:41 Temperature Pulse Rate 92 H 86 87 Respiratory Rate 22 16 17 Blood Pressure 162/72 H 146/67 H 137/55 L Pulse Oximetry 97 97 98 02/06/18 12:56 02/06/18 13:00 02/06/18 13:11 Temperature Pulse Rate 86 91 H 78 Respiratory Rate 18 24 17 Blood Pressure 131/63 165/77 H Pulse Oximetry 96 99 97 02/06/18 13:26 02/06/18 13:41 02/06/18 13:56 Temperature Pulse Rate 81 82 86 Respiratory Rate 23 25 H 24 Blood Pressure 176/76 H 151/86 H 165/82 H Pulse Oximetry 97 98 97 02/06/18 14:00 02/06/18 14:11 02/06/18 14:26 Temperature Pulse Rate 90 88 69 Respiratory Rate 24 20 20 Blood Pressure 163/84 H 149/74 H Pulse Oximetry 98 97 97 02/06/18 14:41 02/06/18 14:56 02/06/18 15:00 Temperature Pulse Rate 64 65 64 Respiratory Rate 19 23 19 Blood Pressure 151/80 H 138/69 Pulse Oximetry 97 98 97 02/06/18 15:11 02/06/18 15:26 02/06/18 15:41 Temperature Pulse Rate 59 L 59 L 66 Respiratory Rate 18 24 24 Blood Pressure 151/69 H 156/77 H 161/87 H Pulse Oximetry 98 98 98 02/06/18 15:56 02/06/18 16:00 02/06/18 16:30 Temperature Pulse Rate 63 69 16 L Respiratory Rate 23 22 22 Blood Pressure 161/68 H Pulse Oximetry 99 99 02/06/18 17:00 02/06/18 17:11 02/06/18 17:22 Temperature Pulse Rate 75 72 83 Respiratory Rate 20 19 22 Blood Pressure 134/61 Pulse Oximetry 97 96 96 02/06/18 17:31 Temperature Pulse Rate Respiratory Rate Blood Pressure 140/65 Pulse Oximetry Intake & Output 02/05/18 02/06/18 02/06/18 18:59 06:59 18:59 Intake Total 457 / 457 0 / 0 1000 / 1000 Output Total 600 / 600 800 / 800 Balance -143 / -143 -800 / -800 1000 / 1000 Weight 74.843 kg 70.4 kg Intake: IV 457 / 457 1000 / 1000 NS Inj 1,000 ML @ 70 mls/hr IV. 400 / 400 1000 / 1000 CONT .[id number] [facility] Rx#:[id number] Activase Drip 57 MG In Bag/ 57 / 57 Syringe 1 EACH @ 57 mls/hr IV. SIG ONCE ONE Rx#:[id number] Oral 0 / 0 Output: Urine 600 / 600 800 / 800 Other: # Voids 4 Date of Last Bowel Movement 02/04/18 02/04/18 02/04/18 # Bowel Movements 0 Weight On Admission 70.6 kg Laboratory Results - last 24 hr 02/05/18 02/06/18 02/06/18 16:17 13:34 13:41 WBC 7.6 RBC 4.54 Hgb 14.0 Hct 40.9 MCV 90.0 MCH 30.9 MCHC 34.3 RDW 13.8 Plt Count 176 MPV 9.2 Neut % (Auto) 65.1 Lymph % (Auto) 21.4 [place] % (Auto) 11.7 H Eos % (Auto) 1.3 Baso % (Auto) 0.5 Neut # (Auto) 4.9 Lymph # (Auto) 1.6 [place] # (Auto) 0.9 Eos # (Auto) 0.1 Baso # (Auto) 0.0 WBC Differential . Differential Comment Auto diff final PT 10.8 INR 1.1 Sodium Potassium Chloride Carbon Dioxide Anion Gap BUN Creatinine Estimated GFR Random Glucose Calcium Phosphorus Magnesium Total Bilirubin AST ALT Alkaline Phosphatase Total Protein Albumin TSH Nasal Screen MRSA (PCR) Not detected 02/06/18 13:41 WBC RBC Hgb Hct MCV MCH MCHC RDW Plt Count MPV Neut % (Auto) Lymph % (Auto) [place] % (Auto) Eos % (Auto) Baso % (Auto) Neut # (Auto) Lymph # (Auto) [place] # (Auto) Eos # (Auto) Baso # (Auto) WBC Differential Differential Comment PT INR Sodium 143 Potassium 3.4 L Chloride 110 H Carbon Dioxide 22.9 Anion Gap 10 BUN 9 Creatinine 0.83 Estimated GFR Greater than 89 Random Glucose 90 Calcium 8.0 L Phosphorus 3.1 Magnesium 2.1 Total Bilirubin 1.9 H AST 11 L ALT 14 Alkaline Phosphatase 86 Total Protein 7.1 Albumin 3.5 TSH 0.468 Nasal Screen MRSA (PCR) Impressions Head MRI 02/05/18 00:00 CONCLUSION: 1. Linear area of acute infarction at a cortical gyrus of the left frontoparietal region. 2. Adjacent encephalomalacia in the left frontoparietal region. 3. Suspected small vessel ischemic change in the white matter. 4. Age-related atrophy. Chest X-Ray 02/05/18 11:19 CONCLUSION: No evidence of acute cardiopulmonary process. Head CT 02/05/18 11:19 CONCLUSION: 1. No evidence of acute infarct or hemorrhage. 2. Left frontal parietal encephalomalacia consistent with old infarct. Report was called by [Dr. Richardson ]to E pod nursing staff. Head CTA 02/05/18 11:19 CONCLUSION: No evidence of intraluminal filling defects or steno-occlusive disease. . Neck CTA 02/05/18 11:19 CONCLUSION: 1. Calcified plaque left carotid bifurcation with high-grade stenosis in the origin of the internal carotid artery (greater than 80%). 2. Mild eccentric plaque right carotid bifurcation without significant stenosis. 3. Patent symmetric vertebral arteries. Head CT 02/06/18 11:43 CONCLUSION: 1. Encephalomalacia defect in the left frontal high convexities with nearly punctate region of increased density corresponding to the region of adjacent acute cortical infarct noted on MRI exam. Differential considerations include evolving acute infarction versus less likely punctate hemorrhage. .
[2018-02-07] MEDS: Chlorhexidine Gluconate 2% 1 Pack (2 Cloths) TOPICAL SCH (05:00)
[2018-02-07 05:35] LABS: INR 1.1 Ratio; Prothrombin Time 10.7 sec (9.8-11.6)
[2018-02-07] MEDS: Metoprolol Tartrate 50 MG Tablet PO SCH ×2 (10:10→21:21)
[2018-02-07] MEDS: Famotidine PF Inj 20 MG/2 ML Vial IV.PUSH SCH ×2 (10:11→21:20)
[2018-02-07] MEDS: Lisinopril 5 MG Tablet PO SCH (10:11)
[2018-02-07] MEDS: Sod Chloride 0.9% Inj 1,000 ML IV.CONT SCH (10:13)
--- NOTE | 2018-02-07 10:14 | ECG ---
Date Performed: 02/05/2018 Time Performed: 11:41:17 PTAGE: 77 years EKG: Sinus rhythm MARKED LEFT AXIS DEVIATION INTRAVENTRICULAR CONDUCTION DELAY ABNORMAL ECG PREVIOUS TRACING : 01/10/2015 13.32 DOCTOR: Alverto Avila Interpretating Date/Time 02/07/2018 10:13:04
--- NOTE | 2018-02-07 10:15 | ECG ---
Date Performed: 02/06/2018 Time Performed: 08:12:22 PTAGE: 77 years EKG: Sinus rhythm with PVC(s). Left axis deviation IV conduction defect Possible left ventricular hypertrophy Lateral ST-T changes are probably due to ventricular hypertrophy Consider anterolateral ischemia Left anterio r fascicular block Abnormal ECG PREVIOUS TRACING : 02/05/2018 11.41 DOCTOR: Alverto Avila Interpretating Date/Time 02/07/2018 10:13:55
--- NOTE | 2018-02-07 10:52 | P.PNVS ---
Subjective Subjective/Hospital Course: 02/06/2018 Referral received Full consult today Thanks J 02/06/2018 This 77-year-old gentleman presented to the hospital yesterday with facial drooping and expressive aphasia. Patient noted that he was dysarthric around 10 o'clock in the morning. A stroke alert was called and the patient received Alteplase, which is now in progress. 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 I reviewed laboratory and diagnostic procedures. This gentleman indeed has about 80%, probably 90%, left carotid artery stenosis, which is very critical and should be addressed at this admission. He does have an old encephalomalacia lesion in the left frontal lobe and next to it is extension of the current acute infarct, which is ischemic and quite small. At this point, I believe the best way to proceed is keep the patient in the hospital and then go ahead with a left carotid endarterectomy by the end of the week. The modern literature suggest about a week to 10 days waiting before doing the surgery in patients with ischemic strokes. Dictum is completely different of course, for patients with hemorrhagic strokes in which situation probably we should wait about a month. In the meantime, once the patient is done with Alteplase, he can be on Plavix. Patient will have repeat MRI of the brain by the end of week to make sure there are no hemorrhagic areas and provided no surprises, we are going to proceed with left carotid endarterectomy probably Tuesday or Tuesday. Discussed with Dr. Estuardo sun and we completely agree on the management plan 02/07/2018 Patient doing well today he is awake alert and oriented and his heart rate slowly resolving Motorically patient is intact symmetric with no drift Still some facial droop left We will start on Plavix today Repeat MRI of the brain Tuesday and probable left carotid endarterectomy on Tuesday provided there is no intracranial hemorrhage Objective Vital Signs / I&O: Vital Signs 02/06/18 10:56 02/06/18 11:00 02/06/18 11:08 Temperature Pulse Rate 77 81 75 Respiratory Rate 16 19 18 Blood Pressure 162/70 H Pulse Oximetry 97 97 02/06/18 11:11 02/06/18 11:26 02/06/18 11:41 Temperature Pulse Rate 80 103 H 103 H Respiratory Rate 12 18 24 Blood Pressure 155/66 H 153/70 H 191/78 H Pulse Oximetry 97 98 98 02/06/18 11:51 02/06/18 11:56 02/06/18 12:00 Temperature Pulse Rate 101 H 103 H 98 H Respiratory Rate 24 22 24 Blood Pressure 172/73 H 172/71 H Pulse Oximetry 98 97 97 02/06/18 12:11 02/06/18 12:26 02/06/18 12:41 Temperature Pulse Rate 92 H 86 87 Respiratory Rate 22 16 17 Blood Pressure 162/72 H 146/67 H 137/55 L Pulse Oximetry 97 97 98 02/06/18 12:56 02/06/18 13:00 02/06/18 13:11 Temperature Pulse Rate 86 91 H 78 Respiratory Rate 18 24 17 Blood Pressure 131/63 165/77 H Pulse Oximetry 96 99 97 02/06/18 13:26 02/06/18 13:41 02/06/18 13:56 Temperature Pulse Rate 81 82 86 Respiratory Rate 23 25 H 24 Blood Pressure 176/76 H 151/86 H 165/82 H Pulse Oximetry 97 98 97 02/06/18 14:00 02/06/18 14:11 02/06/18 14:26 Temperature Pulse Rate 90 88 69 Respiratory Rate 24 20 20 Blood Pressure 163/84 H 149/74 H Pulse Oximetry 98 97 97 02/06/18 14:41 02/06/18 14:56 02/06/18 15:00 Temperature Pulse Rate 64 65 64 Respiratory Rate 19 23 19 Blood Pressure 151/80 H 138/69 Pulse Oximetry 97 98 97 02/06/18 15:11 02/06/18 15:26 02/06/18 15:41 Temperature Pulse Rate 59 L 59 L 66 Respiratory Rate 18 24 24 Blood Pressure 151/69 H 156/77 H 161/87 H Pulse Oximetry 98 98 98 02/06/18 15:56 02/06/18 16:00 02/06/18 16:30 Temperature Pulse Rate 63 69 16 L Respiratory Rate 23 22 22 Blood Pressure 161/68 H Pulse Oximetry 99 99 02/06/18 17:00 02/06/18 17:11 02/06/18 17:22 Temperature Pulse Rate 75 72 83 Respiratory Rate 20 19 22 Blood Pressure 134/61 Pulse Oximetry 97 96 96 02/06/18 17:31 02/06/18 18:00 02/06/18 18:11 Temperature Pulse Rate 72 72 Respiratory Rate 18 18 Blood Pressure 140/65 128/65 Pulse Oximetry 98 97 02/06/18 19:00 02/06/18 19:20 02/06/18 19:30 Temperature Pulse Rate 92 H 79 74 Respiratory Rate 31 H 26 H 19 Blood Pressure 141/63 H 125/57 L Pulse Oximetry 100 98 02/06/18 20:00 02/06/18 20:30 02/06/18 20:44 Temperature 98.8 F Pulse Rate 73 80 75 Respiratory Rate 27 H 42 H 16 Blood Pressure 133/87 132/73 Pulse Oximetry 96 97 98 02/06/18 21:00 02/06/18 21:16 02/06/18 21:30 Temperature Pulse Rate 91 H 86 81 Respiratory Rate 24 23 19 Blood Pressure 134/95 H 129/60 Pulse Oximetry 92 L 96 96 02/06/18 22:00 02/06/18 22:30 02/06/18 23:00 Temperature 98.6 F Pulse Rate 81 71 64 Respiratory Rate 28 H 17 18 Blood Pressure 136/83 143/66 H 133/61 Pulse Oximetry 96 97 97 02/06/18 23:30 02/07/18 00:00 02/07/18 00:30 Temperature Pulse Rate 64 63 70 Respiratory Rate 12 17 17 Blood Pressure 120/64 148/68 H 161/72 H Pulse Oximetry 97 97 98 02/07/18 01:00 02/07/18 01:30 02/07/18 02:00 Temperature Pulse Rate 76 63 59 L Respiratory Rate 21 18 22 Blood Pressure 160/72 H 154/70 H 152/69 H Pulse Oximetry 98 97 02/07/18 02:30 02/07/18 03:00 02/07/18 03:30 Temperature Pulse Rate 60 60 65 Respiratory Rate 14 17 17 Blood Pressure 149/65 H 150/67 H 154/72 H Pulse Oximetry 97 98 97 02/07/18 04:00 02/07/18 04:30 02/07/18 05:00 Temperature Pulse Rate 54 L 55 L 56 L Respiratory Rate 23 21 18 Blood Pressure 141/65 H 175/69 H 154/67 H Pulse Oximetry 97 97 98 02/07/18 05:30 02/07/18 06:00 02/07/18 06:30 Temperature Pulse Rate 54 L 62 50 L Respiratory Rate 16 20 17 Blood Pressure 160/70 H 147/65 H 163/72 H Pulse Oximetry 99 99 99 02/07/18 07:00 02/07/18 07:30 02/07/18 08:00 Temperature Pulse Rate 70 51 L Respiratory Rate 19 16 Blood Pressure 155/70 H 179/78 H Pulse Oximetry 99 100 95 Intake & Output 02/06/18 02/07/18 02/07/18 18:59 06:59 18:59 Intake Total 1720 / 1720 1180 / 1180 1000 / 1000 Output Total 1000 / 1000 650 / 650 Balance 720 / 720 530 / 530 1000 / 1000 Weight 70.8 kg Intake: IV 1000 / 1000 1000 / 1000 1000 / 1000 NS Inj 1,000 ML @ 70 mls/hr IV. 1000 / 1000 1000 / 1000 1000 / 1000 CONT .[id number] [facility] Rx#:[id number] Oral 720 / 720 180 / 180 Output: Urine 1000 / 1000 650 / 650 Other: Date of Last Bowel Movement 02/04/18 02/04/18 # Bowel Movements 0 Laboratory Results - last 24 hr 02/06/18 02/06/18 02/06/18 13:34 13:34 13:41 WBC 7.6 RBC 4.54 Hgb 14.0 Hct 40.9 MCV 90.0 MCH 30.9 MCHC 34.3 RDW 13.8 Plt Count 176 MPV 9.2 Neut % (Auto) 65.1 Lymph % (Auto) 21.4 [place] % (Auto) 11.7 H Eos % (Auto) 1.3 Baso % (Auto) 0.5 Neut # (Auto) 4.9 Lymph # (Auto) 1.6 [place] # (Auto) 0.9 Eos # (Auto) 0.1 Baso # (Auto) 0.0 WBC Differential . Differential Comment Auto diff final PT 10.8 INR 1.1 Sodium Potassium Chloride Carbon Dioxide Anion Gap BUN Creatinine Estimated GFR Random Glucose Hemoglobin A1c 5.5 Calcium Phosphorus Magnesium Total Bilirubin AST ALT Alkaline Phosphatase Total Protein Albumin TSH 02/06/18 02/07/18 13:41 05:07 WBC RBC Hgb Hct MCV MCH MCHC RDW Plt Count MPV Neut % (Auto) Lymph % (Auto) [place] % (Auto) Eos % (Auto) Baso % (Auto) Neut # (Auto) Lymph # (Auto) [place] # (Auto) Eos # (Auto) Baso # (Auto) WBC Differential Differential Comment PT 10.7 INR 1.1 Sodium 143 Potassium 3.4 L Chloride 110 H Carbon Dioxide 22.9 Anion Gap 10 BUN 9 Creatinine 0.83 Estimated GFR Greater than 89 Random Glucose 90 Hemoglobin A1c Calcium 8.0 L Phosphorus 3.1 Magnesium 2.1 Total Bilirubin 1.9 H AST 11 L ALT 14 Alkaline Phosphatase 86 Total Protein 7.1 Albumin 3.5 TSH 0.468 Impressions Head MRI 02/05/18 00:00 CONCLUSION: 1. Linear area of acute infarction at a cortical gyrus of the left frontoparietal region. 2. Adjacent encephalomalacia in the left frontoparietal region. 3. Suspected small vessel ischemic change in the white matter. 4. Age-related atrophy. Chest X-Ray 02/05/18 11:19 CONCLUSION: No evidence of acute cardiopulmonary process. Head CT 02/05/18 11:19 CONCLUSION: 1. No evidence of acute infarct or hemorrhage. 2. Left frontal parietal encephalomalacia consistent with old infarct. Report was called by [Dr. Richardson ]to E pod nursing staff. Head CTA 02/05/18 11:19 CONCLUSION: No evidence of intraluminal filling defects or steno-occlusive disease. . Neck CTA 02/05/18 11:19 CONCLUSION: 1. Calcified plaque left carotid bifurcation with high-grade stenosis in the origin of the internal carotid artery (greater than 80%). 2. Mild eccentric plaque right carotid bifurcation without significant stenosis. 3. Patent symmetric vertebral arteries. Head CT 02/06/18 11:43 CONCLUSION: 1. Encephalomalacia defect in the left frontal high convexities with nearly punctate region of increased density corresponding to the region of adjacent acute cortical infarct noted on MRI exam. Differential considerations include evolving acute infarction versus less likely punctate hemorrhage. .
--- NOTE | 2018-02-07 20:38 | P.PNNEU ---
Subjective Subjective Comments: No new neurologic SX Active Medications: Active Medications Albuterol (Albuterol Neb (Prn)) 2.5 mg NEB Q2HR NEB PRN PRN Reason: DYSPNEA Albuterol (Duoneb Neb (Juan)) 1 ampul NEB Q4HR NEB [facility] Last Admin: 02/07/18 20:17 Dose: Not Given Chlorhexidine Gluconate (Chlorhexidine 2% Cloth) 3 pack TOPICAL DAILY@0400 JUAN Stop: 02/11/18 03:59 Last Admin: 02/07/18 05:00 Dose: 3 pack Chlorhexidine Gluconate (Chlorhexidine 2% Cloth) 3 pack TOPICAL DAILY@0400 PRN PRN Reason: Extra cloth needed Stop: 02/11/18 03:59 Clopidogrel Bisulfate (Plavix) 75 mg PO DAILY [facility] Last Admin: 02/07/18 10:11 Dose: 75 mg Famotidine (Pepcid Pf Inj) 20 mg IV.PUSH Q12HR [facility] Last Admin: 02/07/18 10:11 Dose: 20 mg Nicardipine HCl 25 mg/ Sodium (Chloride) 250 mls @ 50 mls/hr IV.CONT TITRATE PRN; Protocol PRN Reason: Per Protocol Last Titration: 02/05/18 16:15 Dose: 0 mg/hr, 0 mls/hr Acetaminophen (Ofirmev Inj) 650 mg in 65 mls @ 400 mls/hr IV.SIG Q6H PRN PRN Reason: PAIN SCALE 1 TO 10 Magnesium Sulfate 4 gm/ Sodium (Chloride) 100 mls @ 50 mls/hr IV.SIG UNSCH PRN PRN Reason: For Magnesium 0.9 - 1.1 mg/dL Magnesium Sulfate 2 gm/ Sodium (Chloride) 100 mls @ 50 mls/hr IV.SIG UNSCH PRN PRN Reason: For Magnesium 1.2 - 1.6 mg/dL Potassium Chloride (Kcl 40 Meq Premix Inj) 40 meq in 100 mls @ 25 mls/hr IV.SIG Q2H PRN PRN Reason: For Potassium 2.8 - 3.2 mEq/L Potassium Chloride (Kcl 20 Meq Premix Inj) 20 meq in 100 mls @ 50 mls/hr IV.SIG Q2H PRN PRN Reason: For Potassium 3.3 - 3.5 mEq/L Potassium Chloride (Kcl 40 Meq Premix Inj) 40 meq in 100 mls @ 25 mls/hr IV.SIG UNSCH PRN PRN Reason: For Potassium 3.3 - 3.5 mEq/L Potassium Chloride (Kcl 20 Meq Premix Inj) 20 meq in 100 mls @ 50 mls/hr IV.SIG Q2H PRN PRN Reason: For Potassium 2.8 - 3.2 mEq/L Potassium Phosphate 30 mmol/ (Sodium Chloride) 260 mls @ 42 mls/hr IV.SIG UNSCH PRN PRN Reason: SEE LABEL COMMENTS Sodium Phosphate 30 mmol/ (Sodium Chloride) 260 mls @ 42 mls/hr IV.SIG UNSCH PRN PRN Reason: For Phosphorus < 2.5 mg/dL Sodium Chloride (Ns Inj) 1,000 mls @ 70 mls/hr IV.CONT .[id number] [facility] Last Admin: 02/07/18 10:13 Dose: 70 mls/hr Labetalol HCl (Trandate Inj) 10 mg IV.PUSH Q2H PRN PRN Reason: For SBP > 180 or DBP > 105 Lactulose (Lactulose Liq) 30 ml PO DAILY PRN PRN Reason: SEVERE CONSITIPATION Lisinopril (Prinivil) 5 mg PO DAILY [facility] Last Admin: 02/07/18 10:11 Dose: 5 mg Magnesium Oxide (Mag-Ox) 800 mg PO UNSCH PRN PRN Reason: For Magnesium 1.2 - 1.6 mg/dL Metoprolol Tartrate (Lopressor) 25 mg PO BID [facility] Last Admin: 02/07/18 10:10 Dose: 25 mg Potassium Bicarb/Potassium Chloride (K-Lyte Cl Eff) 50 meq PO UNSCH PRN PRN Reason: For Potassium 3.3 - 3.5 mEq/L Last Admin: 02/06/18 18:28 Dose: 50 meq Potassium Phosphate (K-Phos Original) 2,000 mg PO UNSCH PRN PRN Reason: SEE LABEL COMMENTS Potassium Phosphate (K-Phos Original) 2,000 mg PO Q4H PRN PRN Reason: Phosphorus Less Than 2.5 mg/dL Allergies/Adverse Reactions: Allergies Allergy/AdvReac Type Severity Reaction Status Date / Time hornet venom Allergy Severe unknown Verified 02/05/18 11:44 atorvastatin Allergy Unknown unknown Verified 02/05/18 11:44 Physical Exam Vital signs: Vital Signs 02/06/18 20:44 02/06/18 21:00 02/06/18 21:16 Temperature Pulse Rate 75 91 H 86 Respiratory Rate 16 24 23 Blood Pressure 134/95 H Pulse Oximetry 98 92 L 96 02/06/18 21:30 02/06/18 22:00 02/06/18 22:30 Temperature Pulse Rate 81 81 71 Respiratory Rate 19 28 H 17 Blood Pressure 129/60 136/83 143/66 H Pulse Oximetry 96 96 97 02/06/18 23:00 02/06/18 23:30 02/07/18 00:00 Temperature 98.6 F Pulse Rate 64 64 63 Respiratory Rate 18 12 17 Blood Pressure 133/61 120/64 148/68 H Pulse Oximetry 97 97 97 02/07/18 00:30 02/07/18 01:00 02/07/18 01:30 Temperature Pulse Rate 70 76 63 Respiratory Rate 17 21 18 Blood Pressure 161/72 H 160/72 H 154/70 H Pulse Oximetry 98 98 02/07/18 02:00 02/07/18 02:30 02/07/18 03:00 Temperature Pulse Rate 59 L 60 60 Respiratory Rate 22 14 17 Blood Pressure 152/69 H 149/65 H 150/67 H Pulse Oximetry 97 97 98 02/07/18 03:30 02/07/18 04:00 02/07/18 04:30 Temperature Pulse Rate 65 54 L 55 L Respiratory Rate 17 23 21 Blood Pressure 154/72 H 141/65 H 175/69 H Pulse Oximetry 97 97 97 02/07/18 05:00 02/07/18 05:30 02/07/18 06:00 Temperature Pulse Rate 56 L 54 L 62 Respiratory Rate 18 16 20 Blood Pressure 154/67 H 160/70 H 147/65 H Pulse Oximetry 98 99 99 02/07/18 06:30 02/07/18 07:00 02/07/18 07:30 Temperature Pulse Rate 50 L 70 51 L Respiratory Rate 17 19 16 Blood Pressure 163/72 H 155/70 H 179/78 H Pulse Oximetry 99 99 100 02/07/18 08:00 02/07/18 08:30 02/07/18 09:00 Temperature 98.7 F Pulse Rate 50 L 76 88 Respiratory Rate 28 H 25 H 29 H Blood Pressure 178/77 H 178/80 H Pulse Oximetry 99 88 L 02/07/18 09:19 02/07/18 09:30 02/07/18 10:00 Temperature Pulse Rate 99 H 98 H 114 H Respiratory Rate 16 22 26 H Blood Pressure 197/83 H 179/90 H 166/95 H Pulse Oximetry 81 L 100 02/07/18 10:30 02/07/18 11:00 02/07/18 11:58 Temperature Pulse Rate 97 H 94 H 88 Respiratory Rate 24 25 H 26 H Blood Pressure 171/78 H 172/77 H Pulse Oximetry 98 98 97 02/07/18 12:00 02/07/18 12:04 02/07/18 13:00 Temperature 98.7 F Pulse Rate 83 85 76 Respiratory Rate 21 22 31 H Blood Pressure 166/75 H 154/73 H Pulse Oximetry 98 98 97 02/07/18 13:04 02/07/18 14:00 02/07/18 14:04 Temperature Pulse Rate 77 77 74 Respiratory Rate 24 20 21 Blood Pressure 167/76 H 186/80 H Pulse Oximetry 96 98 97 02/07/18 14:08 02/07/18 15:00 02/07/18 15:04 Temperature Pulse Rate 75 65 66 Respiratory Rate 27 H 18 20 Blood Pressure 169/84 H 141/61 H Pulse Oximetry 97 97 97 02/07/18 16:00 02/07/18 16:04 02/07/18 16:20 Temperature Pulse Rate 68 67 69 Respiratory Rate 23 29 H 29 H Blood Pressure 181/81 H 162/73 H Pulse Oximetry 98 98 98 02/07/18 17:00 02/07/18 17:02 02/07/18 17:04 Temperature 98.7 F Pulse Rate 91 H 74 Respiratory Rate 31 H 29 H Blood Pressure 165/123 H Pulse Oximetry 97 96 02/07/18 18:00 Temperature Pulse Rate 68 Respiratory Rate 28 H Blood Pressure Pulse Oximetry 98 Intake & Output 02/07/18 02/07/18 02/08/18 06:59 18:59 06:59 Intake Total 1180 / 1180 1420 / 1420 Output Total 650 / 650 1100 / 1100 Balance 530 / 530 320 / 320 Weight 70.8 kg Intake: IV 1000 / 1000 1000 / 1000 NS Inj 1,000 ML @ 70 mls/hr IV. 1000 / 1000 1000 / 1000 CONT .[id number] [facility] Rx#:[id number] Oral 180 / 180 420 / 420 Output: Urine 650 / 650 1100 / 1100 Other: Date of Last Bowel Movement 02/04/18 02/04/18 # Bowel Movements 0 0 - Routine Neurological Exam alert, speech more fluent,follow commands CN intact mOTOR 5/5 bue Objective Laboratory Results - last 24 hr 02/07/18 05:07 PT 10.7 INR 1.1 Review/Management - Review/Management Plan: start Plavix 75 mg daily Agree with plan to proceed with left carotid endarterectomy later in the week Will repeat MRI in a day or so to further evaluate the stroke and r/o hemorrhage.
--- NOTE | 2018-02-07 21:00 | P.PNIM ---
Subjective Interval history: Follow up for CVA, carotid artery stenosis. Patient is currently doing well. Denies any acute concerns. He is likely to undergo cartoid artery surgery on 02/11/2018. Physical Exam Vital signs: Last Vital Signs Temp 98.7 F 02/07/18 17:00 Pulse 68 02/07/18 18:00 Resp 28 H 02/07/18 18:00 BP 165/123 H 02/07/18 17:04 Pulse Ox 98 02/07/18 18:00 Intake & Output 02/05/18 02/06/18 02/07/18 02/08/18 06:59 06:59 06:59 06:59 Intake Total 457 / 457 2900 / 2900 1420 / 1420 Output Total 1400 / 1400 1650 / 1650 1100 / 1100 Balance -943 / -943 1250 / 1250 320 / 320 Weight 70.4 kg 70.8 kg Narrative: GENERAL: This is a well-nourished, well-developed patient, in no apparent distress. CARDIOVASCULAR: Normal rate and regular rhythm without murmurs, gallops, or rubs. RESPIRATORY: Good respiratory efforts. Breath sounds equal and clear to auscultation bilaterally. GASTROINTESTINAL: Abdomen soft, non-tender, non-distended. Normal active bowel sounds MUSCULOSKELETAL: Extremities without cyanosis, or edema. NEURO: Alert & Oriented to person, place, time, situation. Speech is coherent and fluent. No focal deficits. PSYCH: Appropriate mood and affect. 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 Patient is status post TPA. He is found to have significant carotid artery stenosis. 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 CT angiogram of the neck revealed left carotid stenosis 80% -vascular surgery consulted by neurology CT angiogram of brain revealed no acute findings MRI brain revealed acute CVA at the cortical gyri of the left frontoparietal region Received alteplase 6.4 mg x1 followed by 57 mg over 1 hour Neurology/Dr. Marte following Repeat brain CT 24 hours post infusion PT/OT/ST Neurocheck Essential hypertension Hyperlipidemia -with elevated HDL Left carotid stenosis Patient initially received labetalol and nicardipine drip 2D echocardiogram unremarkable Currently on Lisinopril 5mg Qday, increase to 10mg and Metoprolol 25mg BID Will start Amlodipine 5mg Qday (Home med). HDL is elevated. LDL is within normal limits. Vascular surgery for left carotid endarterectomy. Patient can be transferred to the floor. Full code. S/p TPA. DVT proph when okay with neurology. Progress Note: Quality VTE Deep Vein Thrombosis/Pulmonary Embolism Present on Admission: No
[2018-02-08] MEDS: Sod Chloride 0.9% Inj 1,000 ML IV.CONT SCH (02:43)
[2018-02-08] MEDS: Chlorhexidine Gluconate 2% 1 Pack (2 Cloths) TOPICAL SCH (05:33)
[2018-02-08 06:44] LABS: Prothrombin Time 10.6 sec (9.8-11.6)
[2018-02-08] MEDS ORDERED: Gadobutrol PF 7.5 MMOL/7.5 ML Vial (for RAD) IV.SIG ONE (09:45)
--- NOTE | 2018-02-08 10:06 | MR ---
EXAM DATE: 02/08/2018 10:01 AM EST AGE/SEX: 77 years / Male INDICATIONS: Aphasia. CLINICAL DATA: This is the patient's subsequent encounter. Patient reports that signs and symptoms h ave been present for 3 days and indicates a pain score of 0/10. MEDICAL/SURGICAL HISTORY: Stroke. Hypertension. left carotid stenosis Cholecystectomy. Appen dectomy. hip replacement COMPARISON: [facility] [place] W & W/O CONTRAST, 02/05/2018. . TECHNIQUE: Multiplanar, multisequence examination of the brain was performed without and with 7.5 ml Gadavist (gadobutrol) contrast as a single exam dose. FINDINGS: Cerebrum: There is moderate central and cortical atrophy with dilatation of ventricular and sulcal s paces. Mild hemosiderin deposition is present in the orbital frontal regions and the left proximal re gion. There is a focal area of restricted diffusion and gyriform in nature high left centrum semioval e extends into the basal ganglia. This is associated with old ischemic changes in the same region. Th ere is no parenchymal hemorrhage. There is no abnormal contrast enhancement Posterior Fossa: The cerebellum and brainstem are intact. The 4th ventricle is midline. The cerebel lopontine angle is unremarkable. The cerebellar tonsils are normal in position. There are no signifi cant ischemic changes in the posterior fossa. Extracranial: The visualized portions of the orbits and paranasal sinuses are unremarkable. CONCLUSION: 1. Old infarct in the left sylvian region with some new yadiel-infarct restricted diffusion to suggest progression. 2. 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 3. Ventricles are mildly prominent, somewhat out of proportion to degree of sulcal dilatation sugges ting normal pressure hydrocephalus phenomena Electronically signed by: Ivan Rivers MD 02/08/2018 10:04 AM EST
[2018-02-08] MEDS: Metoprolol Tartrate 50 MG Tablet PO SCH ×2 (10:44→21:42)
[2018-02-08] MEDS: amLODIPine 5 MG Tablet PO SCH (10:44)
[2018-02-08] MEDS: Lisinopril 5 MG Tablet PO SCH (10:45)
[2018-02-08] MEDS: Famotidine PF Inj 20 MG/2 ML Vial IV.PUSH SCH ×2 (10:45→21:43)
--- NOTE | 2018-02-08 14:15 | P.PNVS ---
Subjective Subjective/Hospital Course: 02/06/2018 Referral received Full consult today Thanks J 02/06/2018 This 77-year-old gentleman presented to the hospital yesterday with facial drooping and expressive aphasia. Patient noted that he was dysarthric around 10 o'clock in the morning. A stroke alert was called and the patient received Alteplase, which is now in progress. 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 I reviewed laboratory and diagnostic procedures. This gentleman indeed has about 80%, probably 90%, left carotid artery stenosis, which is very critical and should be addressed at this admission. He does have an old encephalomalacia lesion in the left frontal lobe and next to it is extension of the current acute infarct, which is ischemic and quite small. At this point, I believe the best way to proceed is keep the patient in the hospital and then go ahead with a left carotid endarterectomy by the end of the week. The modern literature suggest about a week to 10 days waiting before doing the surgery in patients with ischemic strokes. Dictum is completely different of course, for patients with hemorrhagic strokes in which situation probably we should wait about a month. In the meantime, once the patient is done with Alteplase, he can be on Plavix. Patient will have repeat MRI of the brain by the end of week to make sure there are no hemorrhagic areas and provided no surprises, we are going to proceed with left carotid endarterectomy probably Tuesday or Tuesday. Discussed with Dr. Estuardo sun and we completely agree on the management plan 02/07/2018 Patient doing well today he is awake alert and oriented and his heart rate slowly resolving Motorically patient is intact symmetric with no drift Still some facial droop left We will start on Plavix today Repeat MRI of the brain Tuesday and probable left carotid endarterectomy on Tuesday provided there is no intracranial hemorrhage 02/08/2018 Neurologically patient is improving every day Dysarthria is definitely improving Motorically patient is equal bilateral without drift or lateralization Still somewhat weak All things equal MRI of the brain Tuesday and carotid endarterectomy Tuesday Objective Vital Signs / I&O: Vital Signs 02/07/18 15:00 02/07/18 15:04 02/07/18 16:00 Temperature Pulse Rate 65 66 68 Respiratory Rate 18 20 23 Blood Pressure 141/61 H Pulse Oximetry 97 97 98 02/07/18 16:04 02/07/18 16:20 02/07/18 17:00 Temperature 98.7 F Pulse Rate 67 69 91 H Respiratory Rate 29 H 29 H 31 H Blood Pressure 181/81 H 162/73 H Pulse Oximetry 98 98 97 02/07/18 17:02 02/07/18 17:04 02/07/18 18:00 Temperature Pulse Rate 74 68 Respiratory Rate 29 H 28 H Blood Pressure 165/123 H Pulse Oximetry 96 98 02/07/18 18:04 02/07/18 19:00 02/07/18 19:04 Temperature Pulse Rate 70 78 74 Respiratory Rate 19 21 19 Blood Pressure 187/90 H 149/70 H Pulse Oximetry 97 97 96 02/07/18 20:00 02/07/18 20:04 02/07/18 21:00 Temperature Pulse Rate 64 69 63 Respiratory Rate 19 23 19 Blood Pressure 165/74 H Pulse Oximetry 97 97 97 02/07/18 21:04 02/07/18 22:00 02/07/18 22:04 Temperature Pulse Rate 62 59 L 61 Respiratory Rate 20 19 20 Blood Pressure 161/72 H 191/81 H Pulse Oximetry 97 97 97 02/07/18 22:08 02/07/18 23:00 02/07/18 23:04 Temperature Pulse Rate 60 61 58 L Respiratory Rate 19 21 18 Blood Pressure 174/74 H 161/74 H Pulse Oximetry 98 97 97 02/08/18 00:00 02/08/18 00:04 02/08/18 01:00 Temperature Pulse Rate 61 60 54 L Respiratory Rate 17 18 17 Blood Pressure 168/74 H Pulse Oximetry 98 97 96 02/08/18 02:00 02/08/18 03:00 02/08/18 03:31 Temperature Pulse Rate 55 L 63 75 Respiratory Rate 21 18 20 Blood Pressure 170/72 H Pulse Oximetry 96 95 02/08/18 04:00 02/08/18 05:00 02/08/18 06:00 Temperature 98.7 F Pulse Rate 72 52 L 59 L Respiratory Rate 22 16 18 Blood Pressure 170/72 H Pulse Oximetry 96 95 95 02/08/18 07:00 02/08/18 08:00 02/08/18 10:19 Temperature 98.3 F Pulse Rate 95 H 55 L 77 Respiratory Rate 30 H 15 24 Blood Pressure Pulse Oximetry 96 96 98 02/08/18 10:33 Temperature Pulse Rate 77 Respiratory Rate 22 Blood Pressure 162/70 H Pulse Oximetry 98 Intake & Output 02/07/18 02/08/18 02/08/18 18:59 06:59 18:59 Intake Total 1420 / 1420 1000 / 1000 Output Total 1100 / 1100 500 / 500 Balance 320 / 320 500 / 500 Weight 73.4 kg Intake: IV 1000 / 1000 1000 / 1000 NS Inj 1,000 ML @ 70 mls/hr IV. 1000 / 1000 1000 / 1000 CONT .[id number] [facility] Rx#:[id number] Oral 420 / 420 Output: Urine 1100 / 1100 500 / 500 Other: # Voids 5 Date of Last Bowel Movement 02/04/18 02/04/18 02/04/18 # Bowel Movements 0 Laboratory Results - last 24 hr 02/08/18 06:20 PT 10.6 INR 1.0 Impressions Head MRI 02/08/18 00:00 CONCLUSION: 1. Old infarct in the left sylvian region with some new yadiel-infarct restricted diffusion to suggest progression. 2. 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 3. Ventricles are mildly prominent, somewhat out of proportion to degree of sulcal dilatation suggesting normal pressure hydrocephalus phenomena
--- NOTE | 2018-02-08 23:57 | P.PNIM ---
Subjective Interval history: Follow up for CVA, carotid artery stenosis. Patient is doing well. No acute concerns. No fever, chills. Physical Exam Vital signs: Last Vital Signs Temp 98.5 F 02/08/18 20:00 Pulse 62 02/08/18 20:00 Resp 16 02/08/18 20:00 BP 151/69 H 02/08/18 20:00 Pulse Ox 95 02/08/18 23:49 Intake & Output 02/06/18 02/07/18 02/08/18 02/09/18 06:59 06:59 06:59 06:59 Intake Total 457 / 457 2900 / 2900 2420 / 2420 1700 / 1700 Output Total 1400 / 1400 1650 / 1650 1600 / 1600 1000 / 1000 Balance -943 / -943 1250 / 1250 820 / 820 700 / 700 Weight 70.4 kg 70.8 kg 73.4 kg Narrative: GENERAL: This is a well-nourished, well-developed patient, in no apparent distress. CARDIOVASCULAR: Normal rate and regular rhythm without murmurs, gallops, or rubs. RESPIRATORY: Good respiratory efforts. Breath sounds equal and clear to auscultation bilaterally. GASTROINTESTINAL: Abdomen soft, non-tender, non-distended. Normal active bowel sounds MUSCULOSKELETAL: Extremities without cyanosis, or edema. NEURO: Alert & Oriented to person, place, time, situation. Speech is coherent and fluent. No focal deficits. PSYCH: Appropriate mood and affect. Results Labs CBC & Chem 7: 02/06/18 13:41 02/06/18 13:41 Imaging Imaging: Impressions Head MRI 02/08/18 00:00 CONCLUSION: 1. Old infarct in the left sylvian region with some new yadiel-infarct restricted diffusion to suggest progression. 2. 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 3. Ventricles are mildly prominent, somewhat out of proportion to degree of sulcal dilatation suggesting normal pressure hydrocephalus phenomena Assessment and Plan Plan 77-year-old male admitted with acute left frontal parietal CVA with dysarthria and right-sided facial droop. Patient is status post TPA. He is found to have significant carotid artery stenosis. 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 CT angiogram of the neck revealed left carotid stenosis 80% -vascular surgery consulted by neurology CT angiogram of brain revealed no acute findings MRI brain revealed acute CVA at the cortical gyri of the left frontoparietal region Received alteplase 6.4 mg x1 followed by 57 mg over 1 hour Neurology/Dr. Marte following Repeat brain CT 24 hours post infusion PT/OT/ST Essential hypertension Hyperlipidemia -with elevated HDL Left carotid stenosis Patient initially received labetalol and nicardipine drip 2D echocardiogram unremarkable Currently on Lisinopril 10mg and Metoprolol 25mg BID Amlodipine 5mg Qday (Home med). HDL is elevated. LDL is within normal limits. Vascular surgery for left carotid endarterectomy. Full code. S/p TPA. DVT proph when okay with neurology. Progress Note: Quality VTE Deep Vein Thrombosis/Pulmonary Embolism Present on Admission: No
[2018-02-09] MEDS: Chlorhexidine Gluconate 2% 1 Pack (2 Cloths) TOPICAL SCH (04:32)
[2018-02-09 07:10] LABS: Prothrombin Time 10.2 sec (9.8-11.6)
[2018-02-09] MEDS: Lisinopril 5 MG Tablet PO SCH (10:50)
[2018-02-09] MEDS: Metoprolol Tartrate 50 MG Tablet PO SCH ×2 (10:51→22:25)
[2018-02-09] MEDS: amLODIPine 5 MG Tablet PO SCH (10:51)
[2018-02-09] MEDS: Famotidine PF Inj 20 MG/2 ML Vial IV.PUSH SCH ×2 (10:51→22:25)
--- NOTE | 2018-02-09 22:55 | P.PNIM ---
Subjective Interval history: Follow up for CVA, carotid artery stenosis. Patient was seen this afternoon. Doing well. No acute concerns. Waiting for surgery for left carotid artery stenosis - probable surgery on Tuesday02/11/2018. Physical Exam Vital signs: Last Vital Signs Temp 98.6 F 02/09/18 20:00 Pulse 62 02/09/18 20:00 Resp 20 02/09/18 20:00 BP 145/65 H 02/09/18 20:00 Pulse Ox 95 02/09/18 20:00 Intake & Output 02/07/18 02/08/18 02/09/18 02/10/18 06:59 06:59 06:59 06:59 Intake Total 2900 / 2900 2420 / 2420 1700 / 1700 Output Total 1650 / 1650 1600 / 1600 1500 / 1500 300 / 300 Balance 1250 / 1250 820 / 820 200 / 200 -300 / -300 Weight 70.8 kg 73.4 kg 70.5 kg Narrative: GENERAL: This is a well-nourished, well-developed patient, in no apparent distress. CARDIOVASCULAR: Normal rate and regular rhythm without murmurs, gallops, or rubs. RESPIRATORY: Good respiratory efforts. Breath sounds equal and clear to auscultation bilaterally. GASTROINTESTINAL: Abdomen soft, non-tender, non-distended. Normal active bowel sounds MUSCULOSKELETAL: Extremities without cyanosis, or edema. NEURO: Alert & Oriented to person, place, time, situation. Speech is coherent and fluent. No focal deficits. PSYCH: Appropriate mood and affect. 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 Patient is status post TPA. He is found to have significant carotid artery stenosis. 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 CT angiogram of the neck revealed left carotid stenosis 80% -vascular surgery consulted by neurology CT angiogram of brain revealed no acute findings MRI brain revealed acute CVA at the cortical gyri of the left frontoparietal region Received alteplase 6.4 mg x1 followed by 57 mg over 1 hour Neurology/Dr. Marte following Repeat brain CT 24 hours post infusion PT/OT/ST Essential hypertension Hyperlipidemia -with elevated HDL Left carotid stenosis Patient initially received labetalol and nicardipine drip 2D echocardiogram unremarkable Currently on Lisinopril 10mg and Metoprolol 25mg BID Amlodipine 5mg Qday (Home med). HDL is elevated. LDL is within normal limits. Vascular surgery for left carotid endarterectomy. Full code. S/p TPA. DVT proph when okay with neurology. Progress Note: Quality VTE Deep Vein Thrombosis/Pulmonary Embolism Present on Admission: No
[2018-02-10] MEDS: Chlorhexidine Gluconate 2% 1 Pack (2 Cloths) TOPICAL SCH (04:35)
[2018-02-10] MEDS: amLODIPine 5 MG Tablet PO SCH (09:21)
[2018-02-10] MEDS: Lisinopril 5 MG Tablet PO SCH (09:21)
[2018-02-10] MEDS: Famotidine PF Inj 20 MG/2 ML Vial IV.PUSH SCH ×2 (09:22→21:31)
[2018-02-10] MEDS: Metoprolol Tartrate 50 MG Tablet PO SCH ×2 (09:22→21:31)
[2018-02-10] MEDS ORDERED: Acetaminophen 325 MG Tablet PO PRN (09:25)
--- NOTE | 2018-02-10 10:42 | P.PNVS ---
Subjective Subjective/Hospital Course: 02/06/2018 Referral received Full consult today Thanks J 02/06/2018 This 77-year-old gentleman presented to the hospital yesterday with facial drooping and expressive aphasia. Patient noted that he was dysarthric around 10 o'clock in the morning. A stroke alert was called and the patient received Alteplase, which is now in progress. 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 I reviewed laboratory and diagnostic procedures. This gentleman indeed has about 80%, probably 90%, left carotid artery stenosis, which is very critical and should be addressed at this admission. He does have an old encephalomalacia lesion in the left frontal lobe and next to it is extension of the current acute infarct, which is ischemic and quite small. At this point, I believe the best way to proceed is keep the patient in the hospital and then go ahead with a left carotid endarterectomy by the end of the week. The modern literature suggest about a week to 10 days waiting before doing the surgery in patients with ischemic strokes. Dictum is completely different of course, for patients with hemorrhagic strokes in which situation probably we should wait about a month. In the meantime, once the patient is done with Alteplase, he can be on Plavix. Patient will have repeat MRI of the brain by the end of week to make sure there are no hemorrhagic areas and provided no surprises, we are going to proceed with left carotid endarterectomy probably Tuesday or Tuesday. Discussed with Dr. Estuardo sun and we completely agree on the management plan 02/07/2018 Patient doing well today he is awake alert and oriented and his heart rate slowly resolving Motorically patient is intact symmetric with no drift Still some facial droop left We will start on Plavix today Repeat MRI of the brain Tuesday and probable left carotid endarterectomy on Tuesday provided there is no intracranial hemorrhage 02/08/2018 Neurologically patient is improving every day Dysarthria is definitely improving Motorically patient is equal bilateral without drift or lateralization Still somewhat weak All things equal MRI of the brain Tuesday and carotid endarterectomy Tuesday02/10/18 Patient awake alert oriented neurologically fully intact MRI of the brain on the reveals some restricted perfusion consistent with ischemic stroke Patient scheduled for left carotid endarterectomy tomorrow Discussed risks and benefits with the patient Objective Vital Signs / I&O: Vital Signs 02/09/18 12:00 02/09/18 16:00 02/09/18 16:13 Temperature 97.9 F 98.3 F Pulse Rate 71 64 46 L Respiratory Rate 20 20 Blood Pressure 185/81 H 118/58 L Pulse Oximetry 94 L 97 02/09/18 17:34 02/09/18 20:00 02/10/18 00:00 Temperature 98.6 F 98.2 F Pulse Rate 62 53 L Respiratory Rate 20 20 Blood Pressure 145/65 H 136/63 Pulse Oximetry 97 95 97 02/10/18 04:00 02/10/18 08:00 02/10/18 10:00 Temperature 98.1 F 98.1 F Pulse Rate 55 L 52 L 55 L Respiratory Rate 20 16 Blood Pressure 132/62 150/67 H Pulse Oximetry 97 95 Intake & Output 02/09/18 02/10/18 02/10/18 18:59 06:59 18:59 Intake Total 440 / 440 Output Total 300 / 300 400 / 400 Balance -300 / -300 40 / 40 Weight 71 kg Intake: Oral 440 / 440 Output: Urine 300 / 300 400 / 400 Other: # Voids 2 Date of Last Bowel Movement 02/08/18 02/09/18 Laboratory Results - last 24 hr 02/10/18 05:08 PT 10.0 INR 1.0
[2018-02-10] MEDS ORDERED: ceFAZolin 1 GM Premix Inj 1 GM/50 ML PIGGYBACK IV.SIG SCH (11:06)
--- NOTE | 2018-02-10 11:11 | MR ---
EXAM DATE: 02/10/2018 11:03 AM EST AGE/SEX: 77 years / Male INDICATIONS: Stenosis. CVA. CLINICAL DATA: This is the patient's initial encounter. Patient reports that signs and symptoms have been present for 1 day and indicates a pain score of 0/10. MEDICAL/SURGICAL HISTORY: Hypertension. Cholecystectomy. Breast augmentation. Hip replacement. [place] [facility] [place]O [place]/08/2018. . TECHNIQUE: 3D [id number] MRA was performed. Source images, multiplanar STS MIP, and 3D volum e MIP reconstructions were reviewed. FINDINGS: There is excellent visualization of the major intracranial arteries out to the second-order branch ve ssels. There is no evidence for aneurysm, vessel truncation or stenosis, and no evidence for vascula r malformation. CONCLUSION: 1. Negative for major branch vessel occlusion Electronically signed by: Ivan Rivers MD Board Certified Radiologist 02/10/2018 11:10 AM EST
--- NOTE | 2018-02-10 14:59 | P.PNIM ---
Subjective Interval history: Follow up for CVA, carotid artery stenosis. Patient is doing well. No acute concerns. No fever, chills. Physical Exam Vital signs: Last Vital Signs Temp 98.2 F 02/10/18 12:00 Pulse 53 L 02/10/18 12:00 Resp 18 02/10/18 12:00 BP 173/73 H 02/10/18 12:00 Pulse Ox 95 02/10/18 12:00 Intake & Output 02/08/18 02/09/18 02/10/18 02/11/18 06:59 06:59 06:59 06:59 Intake Total 2420 / 2420 1700 / 1700 440 / 440 Output Total 1600 / 1600 1500 / 1500 700 / 700 Balance 820 / 820 200 / 200 -260 / -260 Weight 73.4 kg 70.5 kg 71 kg Narrative: GENERAL: This is a well-nourished, well-developed patient, in no apparent distress. CARDIOVASCULAR: Normal rate and regular rhythm without murmurs, gallops, or rubs. RESPIRATORY: Good respiratory efforts. Breath sounds equal and clear to auscultation bilaterally. GASTROINTESTINAL: Abdomen soft, non-tender, non-distended. Normal active bowel sounds MUSCULOSKELETAL: Extremities without cyanosis, or edema. NEURO: Alert & Oriented to person, place, time, situation. speech is normal, coherent. No focal deficits. PSYCH: Appropriate mood and affect. Results Labs CBC & Chem 7: 02/06/18 13:41 02/06/18 13:41 Imaging Imaging: Impressions Head MRA 02/10/18 00:00 CONCLUSION: 1. Negative for major branch vessel occlusion Assessment and Plan Plan 77-year-old male admitted with acute left frontal parietal CVA with dysarthria and right-sided facial droop. Patient is status post TPA. He is found to have significant carotid artery stenosis. 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 CT angiogram of the neck revealed left carotid stenosis 80% -vascular surgery consulted by neurology CT angiogram of brain revealed no acute findings MRI brain revealed acute CVA at the cortical gyri of the left frontoparietal region Received alteplase 6.4 mg x1 followed by 57 mg over 1 hour Neurology/Dr. Marte following Repeat brain CT 24 hours post infusion MRA Brain on 02/10/2018 - unremarkable for any acute findings. PT/OT/ST Essential hypertension Hyperlipidemia -with elevated HDL Left carotid stenosis Patient initially received labetalol and nicardipine drip 2D echocardiogram unremarkable Currently on Lisinopril 10mg and Metoprolol 25mg BID Amlodipine 5mg Qday (Home med). HDL is elevated. LDL is within normal limits. Vascular surgery for left carotid endarterectomy on 02/11/2018. Full code. S/p TPA. DVT proph when okay with vascular surgery/neurology. Progress Note: Quality VTE Deep Vein Thrombosis/Pulmonary Embolism Present on Admission: No
--- NOTE | 2018-02-10 20:20 | P.PNNEU ---
Subjective Subjective Comments: no new sx. speech improved. Active Medications: Active Medications Acetaminophen (Tylenol) 650 mg PO Q6H PRN PRN Reason: PAIN SCALE 1-10 Albuterol (Albuterol Neb (Prn)) 2.5 mg NEB Q2HR NEB PRN PRN Reason: DYSPNEA Amlodipine Besylate (Norvasc) 5 mg PO DAILY [facility] Last Admin: 02/10/18 09:21 Dose: 5 mg Chlorhexidine Gluconate (Chlorhexidine 2% Cloth) 3 pack TOPICAL DAILY@0400 [facility] Stop: 02/11/18 03:59 Last Admin: 02/10/18 04:35 Dose: Not Given Chlorhexidine Gluconate (Chlorhexidine 2% Cloth) 3 pack TOPICAL DAILY@0400 PRN PRN Reason: Extra cloth needed Stop: 02/11/18 03:59 Clopidogrel Bisulfate (Plavix) 75 mg PO DAILY [facility] Last Admin: 02/10/18 09:22 Dose: 75 mg Famotidine (Pepcid Pf Inj) 20 mg IV.PUSH Q12HR [facility] Last Admin: 02/10/18 09:22 Dose: 20 mg Nicardipine HCl 25 mg/ Sodium (Chloride) 250 mls @ 50 mls/hr IV.CONT TITRATE PRN; Protocol PRN Reason: Per Protocol Last Titration: 02/05/18 16:15 Dose: 0 mg/hr, 0 mls/hr Cefazolin Sodium/Dextrose (Ancef 1 Gm Premix Inj) 1 gm in 50 mls @ 200 mls/hr IV.SIG TOP STEEP TENDER [facility] Labetalol HCl (Trandate Inj) 10 mg IV.PUSH Q2H PRN PRN Reason: For SBP > 180 or DBP > 105 Lactulose (Lactulose Liq) 30 ml PO DAILY PRN PRN Reason: SEVERE CONSITIPATION Lisinopril (Prinivil) 10 mg PO DAILY [facility] Last Admin: 02/10/18 09:21 Dose: 10 mg Metoprolol Tartrate (Lopressor) 25 mg PO BID [facility] Last Admin: 02/10/18 09:22 Dose: 25 mg Allergies/Adverse Reactions: Allergies Allergy/AdvReac Type Severity Reaction Status Date / Time hornet venom Allergy Severe unknown Verified 02/05/18 11:44 atorvastatin Allergy Unknown unknown Verified 02/05/18 11:44 Physical Exam Vital signs: Vital Signs 02/10/18 00:00 02/10/18 04:00 02/10/18 08:00 Temperature 98.2 F 98.1 F 98.1 F Pulse Rate 53 L 55 L 52 L Respiratory Rate 20 20 16 Blood Pressure 136/63 132/62 150/67 H Pulse Oximetry 97 97 95 02/10/18 10:00 02/10/18 11:55 02/10/18 12:00 Temperature 98.2 F Pulse Rate 55 L 53 L Respiratory Rate 18 Blood Pressure 173/73 H Pulse Oximetry 97 95 02/10/18 16:00 02/10/18 17:42 Temperature 98.5 F Pulse Rate 59 L Respiratory Rate 16 Blood Pressure 118/59 L Pulse Oximetry 96 96 Intake & Output 02/10/18 02/10/18 02/11/18 06:59 18:59 06:59 Intake Total 440 / 440 Output Total 400 / 400 100 / 100 Balance 40 / 40 -100 / -100 Weight 71 kg Intake: Oral 440 / 440 Output: Urine 400 / 400 100 / 100 Other: Date of Last Bowel Movement 02/09/18 - Routine Neurological Exam alert, speech fluent CN intact MOTOR 5/5 RUE and LUE Objective Radiology Results: mri brain of 02/08--left hemisphere cva with no gross hemorrhage Laboratory Results - last 24 hr 02/10/18 02/10/18 05:08 12:12 PT 10.0 INR 1.0 Blood Type O Positive Antibody Screen Negative MTS Gel Crossmatch See Detail Review/Management - Review/Management Plan: Agree with plan to proceed with left carotid endarterectomy herbert
[2018-02-11 09:23] LABS: Prothrombin Time 10.4 sec (9.8-11.6)
[2018-02-11] MEDS: Lisinopril 5 MG Tablet PO SCH (09:30)
[2018-02-11] MEDS: amLODIPine 5 MG Tablet PO SCH (09:31)
[2018-02-11] MEDS: Famotidine PF Inj 20 MG/2 ML Vial IV.PUSH SCH ×2 (09:32→22:03)
[2018-02-11] MEDS ORDERED: fentaNYL Citrate Inj 250 MCG/5 ML Ampul ONE (10:01)
[2018-02-11] MEDS ORDERED: Protamine Sulfate Inj 50 MG/5 ML Vial ONE (10:14)
[2018-02-11] MEDS ORDERED: Lidocaine PF 1% Inj 10 ML Amp ONE (10:16)
[2018-02-11] MEDS: Heparin - SQ 10,000 UNITS/ML Vial ONE ×2 (10:50→11:29)
[2018-02-11] MEDS ORDERED: Heparin 10,000 UNITS/10 ML Vial (for IV use) ONE (10:58)
[2018-02-11] MEDS: Metoprolol Tartrate 50 MG Tablet PO SCH ×2 (11:30→22:04)
[2018-02-11] MEDS ORDERED: niCARdipine Inj 25 MG in Sodium Chlor 0.9% Inj 240 ML IV.CONT PRN (14:52)
[2018-02-11] MEDS: niCARdipine Inj 25 MG in Sodium Chlor 0.9% Inj 240 ML IV.CONT PRN ×2 (15:35→22:08)
--- NOTE | 2018-02-11 17:59 | MP ---
cc: Wilfrid Bae MD DATE OF OPERATION: 02/11/2018 PREOPERATIVE DIAGNOSIS: Acute ischemic left hemispheric stroke and 90% left carotid artery stenosis. POSTOPERATIVE DIAGNOSIS: Acute ischemic left hemispheric stroke and 90% left carotid artery stenosis. PROCEDURE PERFORMED: Carotid endarterectomy patch angioplasty. SURGEON: Wilfrid Bae MD ANESTHESIA: General. ESTIMATED BLOOD LOSS: 200 mL INDICATION FOR PROCEDURE: This unfortunate 77-year-old gentleman sustained acute stroke about a week or 10 days ago. He was transferred to our institution, worked up, found to be ischemic changes on top of previous old stroke, the patient was found to have critical left carotid stenosis and decision was made to perform the surgery within a fairly short period of time as per monitoring guidelines. DESCRIPTION OF PROCEDURE: The patient was prepped and draped in the usual fashion. Sternocleidomastoid incision made, deepened down to the carotid sheath. Common carotid, internal and external carotid arteries were isolated with sharp dissection and umbilical tape with Rumel tourniquet placed loosely around each respectively. Hypoglossal nerve was carefully identified and preserved. A Weitlaner in the upper arm ____ placed. The patient was given 7000 units of heparin. Clamps applied. Bulldog to the internal carotid artery and angled DeBakey. The common carotid artery and vessels opened longitudinally with Loredo scissors, and then an [place] shunt placed, blood flow immediately reestablished. The patient has a huge plaque that occupies the entire bifurcation, extends into internal and external carotid arteries and is crumbly degenerative tissue composed middle plaque and both ends very calcified. This one was dissected in a medial plane using [place] dissector and removed. Intima was checked and washed off with heparinized saline and cleaned with ____ removing small debris. The distal and is now checked. Intima peeled off fairly nicely; however I placed nonetheless two 7-0 Prolene, horizontal mattress stitches to tack it down just in case. Proximally, the layers are tailored off to prevent any debris flushing distally. 8 x 8 cm bovine patch is selected and then sewn in with a running 5-0 Prolene. Prior to completion of the arterial repair the [place] shunt was removed and then repair completed. Blood flow is now reestablished in the usual order and fashion, preventing embolization to the internal carotid artery area with copious amounts of saline, meticulous hemostasis assured. A 7 flat ADEBAYO placed and some Surgicel placed over the repair. Blood flow checked with Doppler and is brisk in all 3 vessels. Incision is closed with 2-0 Vicryl in layers and 4-0 Monocryl, benzoin, Steri-Strips over the skin. In the recovery room the patient woke up. He is neurologically fully intact. MD TUAN Holman/ct/rr , 02:57 PM , 03:04 PM
--- NOTE | 2018-02-11 20:20 | P.PNIM ---
Subjective Interval history: Follow up for CVA, carotid artery stenosis. Patient is doing well. Saw patient after he returned from surgery. He underwent left endarterectomy today. Reports good pain control. No fever/chills. Physical Exam Vital signs: Last Vital Signs Temp 97.8 F 02/11/18 16:00 Pulse 106 H 02/11/18 17:00 Resp 25 H 02/11/18 17:00 BP 156/81 H 02/11/18 17:00 Pulse Ox 99 02/11/18 17:00 Intake & Output 02/09/18 02/10/18 02/11/18 02/12/18 06:59 06:59 06:59 06:59 Intake Total 1700 / 1700 440 / 440 1540 / 1540 Output Total 1500 / 1500 700 / 700 100 / 100 420 / 420 Balance 200 / 200 -260 / -260 -100 / -100 1120 / 1120 Weight 70.5 kg 71 kg 70.6 kg Narrative: GENERAL: This is a well-nourished, well-developed patient, in no apparent distress. CARDIOVASCULAR: Normal rate and regular rhythm without murmurs, gallops, or rubs. RESPIRATORY: Good respiratory efforts. Breath sounds equal and clear to auscultation bilaterally. GASTROINTESTINAL: Abdomen soft, non-tender, non-distended. Normal active bowel sounds MUSCULOSKELETAL: Extremities without cyanosis, or edema. NEURO: Alert & Oriented to person, place, time, situation. speech is normal, coherent. No focal deficits. Surgical dressing on the left neck. PSYCH: Appropriate mood and affect. 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 Patient is status post TPA. He is found to have significant carotid artery stenosis. 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 CT angiogram of the neck revealed left carotid stenosis 80%. s/p left endarterectomy (02/11/2018) CT angiogram of brain revealed no acute findings MRI brain revealed acute CVA at the cortical gyri of the left frontoparietal region Received alteplase 6.4 mg x1 followed by 57 mg over 1 hour Neurology/Dr. Marte following Repeat brain CT 24 hours post infusion MRA Brain on 02/10/2018 - unremarkable for any acute findings. PT/OT/ST Hypertension Hyperlipidemia -with elevated HDL Left carotid stenosis Patient initially received labetalol and nicardipine drip 2D echocardiogram unremarkable Currently on Lisinopril 10mg and Metoprolol 25mg BID Amlodipine 5mg Qday (Home med). HDL is elevated. LDL is within normal limits. Patient is currently in surgical ICU and on Nicardipine drip due to acute hypertension. Full code. S/p TPA. DVT proph when okay with vascular surgery/neurology. Progress Note: Quality VTE Deep Vein Thrombosis/Pulmonary Embolism Present on Admission: No
[2018-02-12] MEDS: niCARdipine Inj 25 MG in Sodium Chlor 0.9% Inj 240 ML IV.CONT PRN (06:22)
[2018-02-12] MEDS: Lisinopril 5 MG Tablet PO SCH (10:30)
[2018-02-12] MEDS: Famotidine PF Inj 20 MG/2 ML Vial IV.PUSH SCH ×2 (10:31→20:47)
[2018-02-12] MEDS: Metoprolol Tartrate 50 MG Tablet PO SCH ×2 (10:32→20:14)
[2018-02-12] MEDS: amLODIPine 5 MG Tablet PO SCH (10:33)
--- NOTE | 2018-02-12 12:31 | P.PNVS ---
Subjective Subjective/Hospital Course: 02/06/2018 Referral received Full consult today Thanks J 02/06/2018 This 77-year-old gentleman presented to the hospital yesterday with facial drooping and expressive aphasia. Patient noted that he was dysarthric around 10 o'clock in the morning. A stroke alert was called and the patient received Alteplase, which is now in progress. 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 I reviewed laboratory and diagnostic procedures. This gentleman indeed has about 80%, probably 90%, left carotid artery stenosis, which is very critical and should be addressed at this admission. He does have an old encephalomalacia lesion in the left frontal lobe and next to it is extension of the current acute infarct, which is ischemic and quite small. At this point, I believe the best way to proceed is keep the patient in the hospital and then go ahead with a left carotid endarterectomy by the end of the week. The modern literature suggest about a week to 10 days waiting before doing the surgery in patients with ischemic strokes. Dictum is completely different of course, for patients with hemorrhagic strokes in which situation probably we should wait about a month. In the meantime, once the patient is done with Alteplase, he can be on Plavix. Patient will have repeat MRI of the brain by the end of week to make sure there are no hemorrhagic areas and provided no surprises, we are going to proceed with left carotid endarterectomy probably Tuesday or Tuesday. Discussed with Dr. Estuardo sun and we completely agree on the management plan 02/07/2018 Patient doing well today he is awake alert and oriented and his heart rate slowly resolving Motorically patient is intact symmetric with no drift Still some facial droop left We will start on Plavix today Repeat MRI of the brain Tuesday and probable left carotid endarterectomy on Tuesday provided there is no intracranial hemorrhage 02/08/2018 Neurologically patient is improving every day Dysarthria is definitely improving Motorically patient is equal bilateral without drift or lateralization Still somewhat weak All things equal MRI of the brain Tuesday and carotid endarterectomy Tuesday02/10/18 Patient awake alert oriented neurologically fully intact MRI of the brain on the reveals some restricted perfusion consistent with ischemic stroke Patient scheduled for left carotid endarterectomy tomorrow Discussed risks and benefits with the patient 02/12/2018 Status post left carotid endarterectomy and patch angioplasty Incision is clean and dry Patient is neurologically fully intact Hemodynamically stable required some nicardipine for hypertension but this is now resolved DC ADEBAYO DC A-line Stop IV fluids and transfer patient to floor Keep incision open to air and patient can be discharged from my point any time Should remain on Plavix for about 2 months Objective Vital Signs / I&O: Vital Signs 02/11/18 12:32 02/11/18 12:45 02/11/18 13:00 Temperature 97.7 F Pulse Rate 78 72 67 Respiratory Rate 15 14 15 Blood Pressure 168/72 H 154/75 H 158/84 H Pulse Oximetry 96 99 100 02/11/18 13:15 02/11/18 13:30 02/11/18 14:00 Temperature 97.9 F Pulse Rate 66 65 62 Respiratory Rate 14 12 12 Blood Pressure 160/90 H 149/73 H 156/75 H Pulse Oximetry 98 99 100 02/11/18 14:45 02/11/18 14:52 02/11/18 14:53 Temperature Pulse Rate 65 75 Respiratory Rate 14 Blood Pressure 151/75 H 165/79 H Pulse Oximetry 100 100 02/11/18 15:00 02/11/18 15:15 02/11/18 15:30 Temperature Pulse Rate 76 70 85 Respiratory Rate 14 12 20 Blood Pressure 165/78 H 170/104 H Pulse Oximetry 100 98 99 02/11/18 15:45 02/11/18 16:00 02/11/18 16:15 Temperature 97.8 F Pulse Rate 91 H 92 H 86 Respiratory Rate 22 21 17 Blood Pressure 171/82 H 131/61 120/59 L Pulse Oximetry 98 99 98 02/11/18 16:30 02/11/18 16:45 02/11/18 17:00 Temperature Pulse Rate 91 H 101 H 106 H Respiratory Rate 21 22 25 H Blood Pressure 124/64 133/69 156/81 H Pulse Oximetry 98 98 99 02/11/18 19:00 02/11/18 19:15 02/11/18 19:30 Temperature Pulse Rate 97 H 88 105 H Respiratory Rate 14 15 18 Blood Pressure 126/68 125/67 158/72 H Pulse Oximetry 99 99 99 02/11/18 19:45 02/11/18 20:00 02/11/18 20:15 Temperature 98.4 F Pulse Rate 96 H 93 H 94 H Respiratory Rate 17 17 15 Blood Pressure 147/72 H 116/61 132/64 Pulse Oximetry 99 99 99 02/11/18 20:30 02/11/18 20:45 02/11/18 21:00 Temperature Pulse Rate 109 H 100 H 97 H Respiratory Rate 27 H 17 16 Blood Pressure 147/77 H 129/66 123/66 Pulse Oximetry 97 99 98 02/11/18 21:15 02/11/18 21:30 02/11/18 21:45 Temperature Pulse Rate 93 H 94 H 93 H Respiratory Rate 16 17 14 Blood Pressure 126/67 114/61 126/64 Pulse Oximetry 99 98 98 02/11/18 22:00 02/11/18 22:09 02/11/18 22:15 Temperature Pulse Rate 92 H 108 H 104 H Respiratory Rate 17 22 24 Blood Pressure 140/75 141/65 H Pulse Oximetry 99 98 99 02/11/18 22:30 02/11/18 22:45 02/11/18 23:00 Temperature Pulse Rate 94 H 88 83 Respiratory Rate 16 16 16 Blood Pressure 127/60 119/55 L 114/56 L Pulse Oximetry 98 98 98 02/11/18 23:15 02/11/18 23:30 02/12/18 00:15 Temperature Pulse Rate 83 81 76 Respiratory Rate 15 16 16 Blood Pressure 117/59 L 122/58 L 123/58 L Pulse Oximetry 98 99 99 02/12/18 00:30 02/12/18 00:45 02/12/18 01:00 Temperature Pulse Rate 78 80 77 Respiratory Rate 15 19 16 Blood Pressure 116/56 L 128/61 130/59 L Pulse Oximetry 97 99 99 02/12/18 01:15 02/12/18 01:30 02/12/18 01:45 Temperature Pulse Rate 76 89 72 Respiratory Rate 15 32 H 14 Blood Pressure 129/61 134/70 122/60 Pulse Oximetry 99 98 99 02/12/18 02:00 02/12/18 02:15 02/12/18 02:30 Temperature Pulse Rate 73 72 83 Respiratory Rate 13 14 25 H Blood Pressure 125/64 147/78 H 123/59 L Pulse Oximetry 99 99 98 02/12/18 02:45 02/12/18 03:00 02/12/18 03:15 Temperature Pulse Rate 81 87 75 Respiratory Rate 16 23 10 L Blood Pressure 123/64 164/86 H 114/56 L Pulse Oximetry 92 L 98 99 02/12/18 03:30 02/12/18 03:45 02/12/18 04:00 Temperature Pulse Rate 74 74 76 Respiratory Rate 11 L 14 12 Blood Pressure 131/66 132/62 136/65 Pulse Oximetry 99 99 99 02/12/18 04:15 02/12/18 04:30 02/12/18 04:45 Temperature Pulse Rate 74 73 75 Respiratory Rate 14 14 17 Blood Pressure 139/67 138/66 138/69 Pulse Oximetry 99 99 98 02/12/18 05:00 02/12/18 05:15 02/12/18 05:30 Temperature Pulse Rate 72 71 77 Respiratory Rate 15 13 17 Blood Pressure 133/63 140/68 140/69 Pulse Oximetry 99 99 99 02/12/18 05:45 02/12/18 06:00 02/12/18 06:15 Temperature Pulse Rate 75 71 99 H Respiratory Rate 14 17 34 H Blood Pressure 141/68 H 146/70 H 157/74 H Pulse Oximetry 99 99 98 02/12/18 06:30 02/12/18 06:45 02/12/18 07:00 Temperature Pulse Rate 74 76 74 Respiratory Rate 14 13 11 L Blood Pressure 141/72 H 141/74 H 136/63 Pulse Oximetry 99 99 100 02/12/18 07:15 02/12/18 07:30 02/12/18 07:45 Temperature Pulse Rate 74 82 81 Respiratory Rate 14 17 17 Blood Pressure 132/61 140/67 145/68 H Pulse Oximetry 99 100 99 02/12/18 07:51 02/12/18 08:00 02/12/18 08:15 Temperature 97.9 F Pulse Rate 72 102 H Respiratory Rate 14 23 Blood Pressure 138/62 144/73 H Pulse Oximetry 99 99 98 02/12/18 08:30 02/12/18 08:45 02/12/18 09:00 Temperature Pulse Rate 72 91 H 88 Respiratory Rate 13 23 21 Blood Pressure 140/68 159/74 H 140/67 Pulse Oximetry 99 98 99 02/12/18 09:15 Temperature Pulse Rate 91 H Respiratory Rate 31 H Blood Pressure 144/76 H Pulse Oximetry 98 Intake & Output 1202/12/18 02/12/18 18:59 06:59 18:59 Intake Total 1540 / 1540 500 / 500 Output Total 420 / 420 600 / 600 Balance 1120 / 1120 -100 / -100 Intake: IV 300 / 300 500 / 500 Cardene Inj 25 MG In NS Inj 240 250 / 250 500 / 500 ML @ 5 MG/HR 50 mls/hr IV.CONT TITRATE PRN Rx#:[id number] Ancef 1 GM Premix Inj 1 gm In 50 / 50 50 ml @ 200 mls/hr IV.SIG [employer] [facility] Rx#:[id number] Oral 240 / 240 Anesthesia Amount 1000 / 1000 Output: Urine 150 / 150 600 / 600 Estimated Blood Loss 250 / 250 Wound Drainage # 1 Left Neck ADEBAYO Drain Other: # Voids 4 Date of Last Bowel Movement 02/10/18 02/10/18 02/10/18 # Incontinent Bowel Movements 0 Laboratory Results - last 24 hr 02/12/18 04:47 PT 10.0 INR 1.0
--- NOTE | 2018-02-12 20:48 | P.PNIM ---
Subjective Interval history: Follow up for CVA, carotid artery stenosis. Patient is doing well. No acute concerns. No fever, chills. Physical Exam Vital signs: Last Vital Signs Temp 97.9 F 02/12/18 16:00 Pulse 77 02/12/18 17:00 Resp 21 02/12/18 17:00 BP 166/79 H 02/12/18 16:17 Pulse Ox 98 02/12/18 17:00 Intake & Output 02/10/18 02/11/18 02/12/18 02/13/18 06:59 06:59 06:59 06:59 Intake Total 440 / 440 2040 / 2040 240 / 240 Output Total 700 / 700 100 / 100 1020 / 1020 820 / 820 Balance -260 / -260 -100 / -100 1020 / 1020 -580 / -580 Weight 71 kg 70.6 kg Narrative: GENERAL: This is a well-nourished, well-developed patient, in no apparent distress. CARDIOVASCULAR: Normal rate and regular rhythm without murmurs, gallops, or rubs. RESPIRATORY: Good respiratory efforts. Breath sounds equal and clear to auscultation bilaterally. GASTROINTESTINAL: Abdomen soft, non-tender, non-distended. Normal active bowel sounds MUSCULOSKELETAL: Extremities without cyanosis, or edema. NEURO: Alert & Oriented to person, place, time, situation. speech is normal, coherent. No focal deficits. Surgical incision clean/dry. PSYCH: Appropriate mood and affect. 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 Patient is status post TPA. He is found to have significant carotid artery stenosis. 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 CT angiogram of the neck revealed left carotid stenosis 80%. s/p left endarterectomy (02/11/2018) CT angiogram of brain revealed no acute findings MRI brain revealed acute CVA at the cortical gyri of the left frontoparietal region Received alteplase 6.4 mg x1 followed by 57 mg over 1 hour Neurology/Dr. Marte following Repeat brain CT 24 hours post infusion MRA Brain on 02/10/2018 - unremarkable for any acute findings. PT/OT/ST Hypertension Hyperlipidemia -with elevated HDL Left carotid stenosis s/p left endarterectomy. Patient initially received labetalol and nicardipine drip 2D echocardiogram unremarkable Currently on Lisinopril 10mg and Metoprolol 25mg BID Amlodipine 5mg Qday (Home med). HDL is elevated. LDL is within normal limits. Vascular surgery is okay for patient to be discharged. Full code. S/p TPA. DVT proph when okay with vascular surgery/neurology. Discharge plan: Will plan on discharging patient home with home health tomorrow 02/13/2018. Progress Note: Quality VTE Deep Vein Thrombosis/Pulmonary Embolism Present on Admission: No
--- NOTE | 2018-02-12 20:50 | P.DCO ---
Physical Therapy Order: Evaluate and treat, Improve ambulation and Strength and gait training Home Health Nursing Order: Medical education, Signs/symptoms of disease process, Medication education-adverse effect and Nursing assessment with vital signs Case Management Consult Case Management Consult-Home Health: Yes I have seen patient Rasheed Aquino on 02/12/18. My clinical findings support the need for the requested home health care services because: Limited mobility due to disease progression, Patient has SOB, Deconditioned with increased weakness, Limited ability to care for self, Need for psychosocial assistance and Infection with risk of complications I certify that my clinical findings support that this patient is homebound because:
[2018-02-12] MEDS ORDERED: amLODIPine 10 MG Tablet PO SCH (20:59)
[2018-02-13] MEDS: Lisinopril 5 MG Tablet PO SCH (08:37)
[2018-02-13] MEDS: Famotidine PF Inj 20 MG/2 ML Vial IV.PUSH SCH (08:38)
[2018-02-13] MEDS: Metoprolol Tartrate 50 MG Tablet PO SCH (08:38)
--- NOTE | 2018-02-13 08:40 | P.DS ---
DS: Providers Date of admission: 02/05/18 12:14 Primary care physician: UNKNOWN Consults: 02/05/18 11:19 Consult to Neurology Stat Consulting Provider: Merrill Marte For STAT consult, spoke directly to:: Reason for Consultation: Brain Attack Notified:: Service Spoke with:: Munira Date Notified:: 02/05/18 Time Notified:: 12:44 Ordering Provider: DU 02/05/18 13:21 Consult to Vascular Surgery Routine Consulting Provider: Wilfrid Bae Preferred [employer] Sweat[employer] Operator:: Wilfrid Bae Reason for Consultation: cva, left carotid stenosis. Suspect left carotid source. Pt is s/p TPA Notified:: Physician Spoke with:: Dr Bae Date Notified:: 02/05/18 Time Notified:: 14:38 Ordering Provider: RONALD 02/05/18 13:58 HUB Only Consult Order Routine Consulting Provider: Haresh Hutson 02/05/18 15:47 Consult to Rehab Medicine Routine Consulting Provider: Brandon Luo Reason for Consultation: Stroke patient, assist with Rehab recommendations Notified:: Service Spoke with:: JAEL Date Notified:: 02/05/18 Time Notified:: 16:20 Ordering Provider: ELZBIETA 02/05/18 16:14 Consult to Hospitalist Routine Consulting Provider: Ginna Matta Reason for Consultation: [place] of care in a.m. 02/06. Admission with left frontoparietal CVA status post alteplase. Followed by Dr. Marte. Also left carotid stenosis followed by Dr. Vasquez CT brain at 10 AM Notified:: Service Spoke with:: JAEL Date Notified:: 02/05/18 Time Notified:: 16:18 Ordering Provider: ELZBIETA Brief History from admission: This is a 77-year-old male. Date of admission . 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 Patient presents to [facility] with acute onset of dysarthria, right facial droop at 10 AM this morning. Stroke alert was called when patient arrived. CT of the brain revealed old left frontoparietal encephalomalacia. CT Kathrin of the brain revealed no acute findings. CT angiogram of the neck revealed 80% stenosis left internal carotid at the bulb. MRI of the brain revealed acute left frontal parietal CVA at the gyrus. Patient was able to speak Tajik but very little Peruvian during this event. There is no significant noncranial nerve motor or sensory deficit. Patient was advised by Dr. Marte. Patient received 6.4 mg of alteplase followed by 57 mg. At first patient had improving left facial droop and dysarthria. Vascular surgeon been consulted for the left internal carotid stenosis. 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 Patient is status post TPA. He is found to have significant carotid artery stenosis. 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 CT angiogram of the neck revealed left carotid stenosis 80%. s/p left endarterectomy (02/11/2018) CT angiogram of brain revealed no acute findings MRI brain revealed acute CVA at the cortical gyri of the left frontoparietal region Received alteplase 6.4 mg x1 followed by 57 mg over 1 hour Neurology/Dr. Marte following Repeat brain CT 24 hours post infusion MRA Brain on 02/10/2018 - unremarkable for any acute findings. PT/OT/ST. PT recommends home with home health. Hypertension Hyperlipidemia -with elevated HDL Left carotid stenosis s/p left endarterectomy. Continue home meds including Amlodipine 10mg Qday. Patient initially received labetalol and nicardipine drip 2D echocardiogram unremarkable Currently on Lisinopril 10mg and Metoprolol 25mg BID Amlodipine continued HDL is elevated. LDL is within normal limits. Vascular surgery is okay for patient to be discharged. Full code. S/p TPA. Time Spent with Patient Total time spent providing and/or coordinating discharge services: Less than 30 minutes Quality: Stroke Last date observed well: 02/05/18 Last time observed well: 10:00 Quality: VTE Deep Vein Thrombosis/Pulmonary Embolism Present on Admission: No Exam Narrative Exam Narrative: GENERAL: Alert, NAD. SKIN: Warm and dry. HEAD: Normocephalic. EYES: No scleral icterus. No injection or drainage. NECK: Supple, trachea midline. No JVD or lymphadenopathy. s/p left endarterectomy. CARDIOVASCULAR: Regular rate and rhythm without murmurs, gallops, or rubs. RESPIRATORY: Breath sounds equal bilaterally. No accessory muscle use. GASTROINTESTINAL: Abdomen soft, non-tender, nondistended. MUSCULOSKELETAL: No cyanosis, or edema. BACK: Nontender without obvious deformity. No CVA tenderness. Results Pending studies at discharge: Pending at discharge 02/11/18 07:51 Surgical [PTH] Routine Labs on day of discharge: Labs from last 24 hours 02/13/18 02/10/18 06:56 12:12 PT 10.0 INR 1.0 MTS Gel Crossmatch See Detail Impressions ITS Impressions Chest X-Ray 02/05/18 11:19 CONCLUSION: No evidence of acute cardiopulmonary process. Head CTA 02/05/18 11:19 CONCLUSION: No evidence of intraluminal filling defects or steno-occlusive disease. . Neck CTA 02/05/18 11:19 CONCLUSION: 1. Calcified plaque left carotid bifurcation with high-grade stenosis in the origin of the internal carotid artery (greater than 80%). 2. Mild eccentric plaque right carotid bifurcation without significant stenosis. 3. Patent symmetric vertebral arteries. Head CT 02/06/18 11:43 CONCLUSION: 1. Encephalomalacia defect in the left frontal high convexities with nearly punctate region of increased density corresponding to the region of adjacent acute cortical infarct noted on MRI exam. Differential considerations include evolving acute infarction versus less likely punctate hemorrhage. . Head MRI 02/08/18 00:00 CONCLUSION: 1. Old infarct in the left sylvian region with some new yadiel-infarct restricted diffusion to suggest progression. 2. 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 3. Ventricles are mildly prominent, somewhat out of proportion to degree of sulcal dilatation suggesting normal pressure hydrocephalus phenomena Head MRA 02/10/18 00:00 CONCLUSION: 1. Negative for major branch vessel occlusion Discharge Plan Discharge Disposition Patient Disposition: W/Home Health Service Discharge Condition Condition: Good Discharge Order Discharge Orders: Discharge Order (Routine); Ordered 02/13/18 Ordered By: Jonny Rodriguez Discharge Details Anticipated Discharge Date: 02/13/18 Discharge Comment: okay to discharge. Physicians Team Primary Care Provider: UNKNOWN, Attending Provider: Jonny Rodriguez Other Providers: Merrill Marte ; Haresh Hutson ; Wilfrid Bae ; Brandon Luo Rxs /Orders / Referrals /Forms Prescriptions: New pantoprazole [Protonix] 20 mg tablet,delayed release (DR/EC) 20 mg PO DAILY Qty: 30 RF: 2 Continue clopidogrel 75 mg Tablet 75 mg PO EVERY OTHER DAY RF: 0 amlodipine 10 mg Tablet 10 mg PO DAILY RF: 0 timolol 0.5 % Drops 1 drp OPHTHALMIC (EYE) BID RF: 0 metoprolol tartrate 50 mg Tablet 25 mg PO BID RF: 0 rosuvastatin 40 mg Tablet 40 mg PO DAILY RF: 0 Changed lisinopril 5 mg Tablet 10 mg PO DAILY Qty: 60 RF: 2 Referrals: UNKNOWN, [Primary Care Provider] - See Instructions Discharge Instructions Patient Printed Instructions: Pantoprazole (By mouth), Carotid Endarterectomy ( DC), Carotid Artery Disease (DC), Ischemic Stroke (DC) Status ED Status: Left Department
[2018-02-13 09:16] VITALS: BP 172/82; PULSE 72; RESP 13; TEMP 97.7; O2SAT 93
== END 2018-02-13 12:20 | disposition home health service (06) ==
LOC: NEPE 11:17 → NEDA 12:14 → N03 15:06 → N05 02-08 18:47 → N03 02-11 13:43
PROVIDERS: ADMIT Hospitalist; ATTEND Hospitalist
DX: I10 Essential (primary) hypertension; Z90.49 Acquired absence of other specified parts of digestive tract; E78.00 Pure hypercholesterolemia, unspecified; Z96.649 Presence of unspecified artificial hip joint; R47.1 Dysarthria and anarthria; E78.5 Hyperlipidemia, unspecified; R29.810 Facial weakness; Q04.6 Congenital cerebral cysts; I63.233 Cerebral infarction due to unspecified occlusion or stenosis of bilateral carotid arteries; Z82.49 Family history of ischemic heart disease and other diseases of the circulatory system; G83.14 Monoplegia of lower limb affecting left nondominant side; Z79.82 Long term (current) use of aspirin; Z82.0 Family history of epilepsy and other diseases of the nervous system; R47.01 Aphasia; Z87.820 Personal history of traumatic brain injury; G93.89 Other specified disorders of brain